=== PATIENT | female | born 1935 | race Caucasian/White ===

== ENCOUNTER 2022-05-09 07:54 | Outpatient (CLI) | payer MEDICARE, OTHER, SELFPAY ==
[2022-05-09 09:30] LABS: Albumin* 4.3 g/dL (3.3-5.0)
[2022-05-09 09:31] LABS: Chloride* 101 mmol/L (96-114); Potassium* 4.5 mmol/L (3.6-5.1); Sodium* 138 mmol/L (135-149)
[2022-05-09 09:33] LABS: Alanine Aminotransferase* 18 U/L (4-35); Alkaline Phosphatase* 98 U/L (40-150); Aspartate Amino Transferase* 26 U/L (12-35); Bilirubin Total* 0.6 mg/dL (0.1-1.5); Blood Urea Nitrogen* 18 mg/dL (7-30); Carbon Dioxide* 31 mmol/L (20-32); Cholesterol* 195 mg/dL (90-199); Creatinine* 0.7 mg/dL (0.5-1.5); Estimated Glomerular Filt Rate 84 ml/min; Glucose* 100 mg/dL (60-115); Total Protein* 6.9 g/dL (6.0-8.3)
[2022-05-09 09:34] LABS: Calcium* 8.9 mg/dL (8.4-10.6); HDL Cholesterol* 75 mg/dL (>=50); LDL Cholesterol Calculated 101 mg/dL (<100); Triglycerides* 95 mg/dL (40-149)
[2022-05-09 10:05] LABS: TSH With Reflex to FT4* 0.234 uIU/mL (0.270-4.200)
[2022-05-10 02:50] LABS: Free T4 Free Thyroxine* 1.49 ng/dL (0.70-1.85)
== END 2022-05-09 07:55 | disposition home or self-care (01) ==
LOC: NFLDREF 07:54
PROVIDERS: PCP Internal Medicine; Visit Provider Internal Medicine
DX: I10 Essential (primary) hypertension (principal); E03.9 Hypothyroidism, unspecified; Z13.6 Encounter for screening for cardiovascular disorders
CPT/HCPCS: 80053; 80061; 84439; 84443

== ENCOUNTER 2023-01-16 10:30 | Outpatient (RCR) | payer MEDICARE, OTHER, SELFPAY ==
--- NOTE | 2022-06-19 10:11 | PT.OPEX ---
PT [place] Outpatient Eval PT [facility] Outpatient Eval Start: 06/18/22 07:35 Freq: Status: Active Protocol: Document 06/18/22 07:41 JUDY (Rec: 06/18/22 07:47 JUDY [id number]) E-signed By Temitope Taylor, PT Physical Therapy Outpatient Evaluation Insurance Information Recert Due Date 09/16/22 Insurance Name Medicare B,[employer] 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 Initially did well with her recovery and then symptoms started to worsen. Her current symptoms are of daily urinary incontinence, urinary urgency, and bowel urgency. Reports bladder leakage with holding her urine too long, coughing, sneezing, and laughing. Will had issues with urge with running water and galvan in the door. Bowel issues are of severe urgency after she eats in the morning. Does have a history of multiple surgeries including: hysterectomy, R inguinal hernia repair X2, thyroidectomy due to cancer, cholecystectomy, and B TKA. Also had a TIA approx 5 yrs ago. Goals for therapy are symptom reduction and improvement in her bladder function. 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 Pt has been taking Citrucel multiple times a week in the evening. She is unsure if her bowel urgency in the am correlates to taking Citrucel at night - will see if there is a correlation. Does not drink enough fluid/water per day. Has not been managing her IAP pressure well with daily activities. Did not have time to complete her evaluation of her PFM today. Will complete at the next session as able. Plan is to continue with further skilled PT services including use of therapeutic exercise, therapeutic activities, neuromuscular re- ed, manual therapy, and self cares for symptom reduction. Plan of Care Rehabilitation Potential Good Physical Therapy Goals Short term goals to be achieved in 4 weeks 1. Able to state 4 of 4 urge suppression/bladder retraining strategies 2. Able to report voiding intervals of 1X every 2-4 hours, 6-8 times per day, 6 out of 7 days. 3. Pt will demonstrate use of functional PFM contraction by performing a precontraction to eliminate UI during coughing and sneezing 4. Will demonstrate an increase in PFM endurance to at least 8 sec holds, X 10 reps, for ability to reduce UI symptoms with ADLs and household activities. senior care goals to be achieved in 12 weeks. 1. Independent with self-care program to allow for reduction in her UI symptoms 2. Will report an 80% reduction in her UI symptoms as seen with ability to stay dry 5 out of 7 days. 3. Pt will report no leaking with coughing, sneezing, and laughing. 4. Pt will report an 80% reduction in her bowel urgency . Coordination/Communication With Referral Source Treatment Plan/Direct Interventions Joint Mobilization,Manual Therapy,Neuromuscular Re-ed, Self-Care/Home Management, Therapeutic Activities, Therapeutic Exercises Frequency/Duration 1 time a week for up to 12 weeks. Patient Will Be Discharged From Therapy Completion of LTG(s),Skills Plateau,Independent w/HEP, Independently Progressing Evaluation Billing Untimed Code Treatment Minutes 40 Complexity Moderate Certification Information Initial Certification Date 06/18/22 Ending Certification Date 09/16/22 Provider Signature Shows Agreement With POC & Medical Necessity Physician Signature & Date Requested Please Sign/Date Here Physician Comment/Change : Physician NPI Number #
--- NOTE | 2022-09-25 12:52 | PT.OPDNX ---
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 Overall she is doing OK. Bladder symptoms are fair. Pt is still aware of the bathroom locations. Her LE spasms are better after her appt on . She is having L sided LBP. Pain usually occurs with her transfers out of bed. Also will have symptoms amb stairs in the evening. Symptoms are of a pinch/pain in her L side of the LB. Can radiate into the hip a bit. Does feel like her L LE is weakner on the stairs but doesn't feel like it will give out. Varying level of compliance with her HEP. Precautions Treatment Precautions/Contraindications TIA hx/o Bladder suspension surgery hx/o hysterectomy hx/o inguinal hernia repair hx/o thyroidectomy hx/o cholecystectomy hx/o B TKA Objective Patient Instructed in Risks/Benefits Yes Therapeutic Exercise Therapeutic Exercise Minutes (minutes) 23 Therapeutic Exercise: To Restore Did assessment of her LE Functional Status strength - grossly WFL. 4/5 strength with L hip flexion and 4+/5 strength for L ankle PF. Did work on HEP to try prior to getting out of bed. KTC, PT , HS and LTRs to help to alleviate her symptoms in the morning. Self Care Management Training Self-Care Activity Minutes (minutes) 15 Self Care Management Training Discussion of her lumbar symptoms. Did discuss modifications to try to reduce pain by end of day - reducing steps during the day alvina in the evening. Will try to start walking more to build her strength and endurance. Will contact MD If needed. Reviewed symptoms to see MD Treatment Minutes Timed Code Treatment Minutes 38 Total Treatment Time 38 Billing Units Self-Care Activity Units 1 Therapeutic Exercise Units 2 Assessment/Impression Assessment/Impression Treatment was limited today due to having another appt. Pt overall is doing fair. Compliance with her HEP still varies. Her symptoms are improving but is still aware of bathroom locations. Does go more often then every 2 hours due to concern of leaking. Today pt presented with multiple concerns. Her main concern was with her LBP. Also has issues with B thumb (will talk to MD about). Her LBP usually in am and in pm- possibly related to deg changes. Did work on updating her HEP to address issues LB symptoms. Pt will get back into walking. Will try to do more of her HEP, more consistently. Has a good understand of her HEP at this time. Will see pt for 1-3 more sessions to help transition into independent self management. Plan of Care Physical Therapy Goals Short term goals to be achieved in 4 weeks 1. Able to state 4 of 4 urge suppression/bladder retraining strategies MET 2. Able to report voiding intervals of 1X every 2-4 hours, 6-8 times per day, 6 out of 7 days. IMPROVED 3. Pt will demonstrate use of functional PFM contraction by performing a precontraction to eliminate UI during coughing and sneezing IMPROVED 4. Will demonstrate an increase in PFM endurance to at least 8 sec holds, X 10 reps, for ability to reduce UI symptoms with ADLs and household activities. IMPROVED shelter goals to be achieved in 12 weeks. 1. Independent with self-care program to allow for reduction in her UI symptoms 2. Will report an 80% reduction in her UI symptoms as seen with ability to stay dry 5 out of 7 days. 3. Pt will report no leaking with coughing, sneezing, and laughing. 4. Pt will report an 80% reduction in her bowel urgency . Daily Plan of Care Continue per POC,Change POC; See Comments Daily Plan of Care Comments Continue with 1-3 more sessions. Her next scheduled PT appt isn't until November. She is on vacation for part of this time and PT schedule is full. Did place her on a waitlist. Pt's plan is to continue with her HEP and will be more compliant. Recertification Information Initial Certification Date 06/18/22 Recertification Start Date 09/25/22 Recertification Due Date 12/24/22 Reasons to Continue Skilled Therapy Pt has made progress toward her goals. Consistency of her PT appt has varied to 1-2 appts per month due to scheduling. Pt has a good program just continues to need some guidance with progression yet, alvina functional strengthen and urge control, to work on better bladder control. Pt will be more motivated to start more of a walking routine to promote PFM strength. Is appropriate for further PT for transitoin. Rehabilitation Potential good Continued Plan of Care and Interventions Will continue with 1-3 more sessions over the next 90 days to modify/progress HEP for transition into independent self management. Will use ther exs, NMRE, self care, and MT as needed for further symptom reduction. Provider Signature Shows Agreement With POC & Medical Necessity Physician Comment/Change Comment or Changes Physician NPI Number #
--- NOTE | 2023-01-16 14:51 | PT.OPDNX ---
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 Was told to wait 3 days prior to returning to exs. After that, she just got off the track. Did not return to doing them. Then she fell in her house- slipped on papers. Hit her L arm and leg on the desk - bruising on her arm and LE. Pt stated she felt weak and was not recovering quickly after her fall. Did go see ortho due to fear of LE injuries and continued pain. Did have xrays of hips and they were negative. Feeling good today. UI still occurs in the am getting out of bed and when she gets home (galvan in the door). Precautions Treatment Precautions/Contraindications TIA hx/o Bladder suspension surgery hx/o hysterectomy hx/o inguinal hernia repair hx/o thyroidectomy hx/o cholecystectomy hx/o B TKA Objective Patient Instructed in Risks/Benefits Yes Therapeutic Exercise Therapeutic Exercise Minutes (minutes) 20 Therapeutic Exercise: To Restore Pt wanted to review her HEP. Functional Status Did review wall squats - measured out distance from wall to feet, 15 inches. Pt did need cueing about not going too low and not to hold > 5-10 sec (was trying to hold it for 2 mins). Quick review of step ups and Kegels. Did discuss ways to try to improve compliance and how some days when she is busy to do small work outs/a couple exs. Self Care Management Training Self-Care Activity Minutes (minutes) 8 Self Care Management Training Review of ways to help control urges with use of tibial nerve stimulation with ankle movement (pumps, DF/PF, circles) alvina when getting out of bed and when walking to the bathroom/getting home. Treatment Minutes Timed Code Treatment Minutes 28 Total Treatment Time 28 Billing Units Self-Care Activity Units 1 Therapeutic Exercise Units 1 Assessment/Impression Assessment/Impression Did review her HEP per pt request. Did modify/ reinstruct to help pt improve her compliance and for proper execution of her exs. Still is having issues with leaking alvina in the am and galvan in the door. Did educate on other ways to try to reduce urges to help improve her bladder control. She will try to work on the exs and the urge reduction techniques. She was able to demonstrate all of her exs correctly by end of session. Does understand need for compliance in order for her symptoms to improve. Her month of Jan is really busy so does not think she can make it into PT but will do her exs . Is planning to return to PT in early February, or as her schedule allows, for progression as needed. Will contact PT with any questions or concerns prior to her next session. . Plan of Care Physical Therapy Goals Short term goals to be achieved in 4 weeks 1. Able to state 4 of 4 urge suppression/bladder retraining strategies MET 2. Able to report voiding intervals of 1X every 2-4 hours, 6-8 times per day, 6 out of 7 days. IMPROVED 3. Pt will demonstrate use of functional PFM contraction by performing a precontraction to eliminate UI during coughing and sneezing IMPROVED 4. Will demonstrate an increase in PFM endurance to at least 8 sec holds, X 10 reps, for ability to reduce UI symptoms with ADLs and household activities. 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 1. Independent with self-care program to allow for reduction in her UI symptoms 2. Will report an 80% reduction in her UI symptoms as seen with ability to stay dry 5 out of 7 days. NOT MET 3. Pt will report no leaking with coughing, sneezing, and laughing. NOT MET 4. Pt will report an 80% reduction in her bowel urgency . IMPROVED. Daily Plan of Care Continue per POC,Change POC; See Comments Daily Plan of Care Comments Pt busy until February, will schedule 1 more session as pt is able. Will call if PT is needed prior. Will Continue with use therapeutic exercise, therapeutic activities, neuromuscular re-ed, manual therapy, and self cares for further symptom reduction. Recertification Information Initial Certification Date 06/18/22 Recertification Start Date 01/16/23 Recertification Due Date 04/16/23 Reasons to Continue Skilled Therapy Pt has not been seen over the past 6+ weeks. She did fall and injured her L UE and LE. Has not returned to her HEP as she should. Has struggled with UI symptoms both stress and urge type. Will work on her HEP. Rehabilitation Potential good Continued Plan of Care and Interventions Will continue with 1 session over the next 90 days to modify/progress HEP for transition into independent self management. Will use ther exs, NMRE, self care, and MT as needed for further symptom reduction. Provider Signature Shows Agreement With POC & Medical Necessity Physician Comment/Change Comment or Changes Physician NPI Number #
== END 2023-05-16 23:59 | disposition home or self-care (01) ==
PROVIDERS: PCP Internal Medicine; Visit Provider Internal Medicine
DX: N81.89 Other female genital prolapse (principal); R27.8 Other lack of coordination; N81.84 Pelvic muscle wasting; Z51.89 Encounter for other specified aftercare
CPT/HCPCS: 97110; 97140; 97162; 97535

== ENCOUNTER 2023-04-16 10:14 | Outpatient (CLI) | payer MEDICARE, OTHER, SELFPAY | END 2023-04-16 10:15 | disposition home or self-care (01) | LOC: NFLDREF 10:15 | PROVIDERS: PCP Internal Medicine; Visit Provider Internal Medicine | DX: E03.9 Hypothyroidism, unspecified (principal); I10 Essential (primary) hypertension; E66.9 Obesity, unspecified | CPT/HCPCS: 84439; 84443 ==

== ENCOUNTER 2023-06-15 20:15 | Emergency (ER) | payer MEDICARE, OTHER, SELFPAY ==
[2023-06-15] VITALS (20 sets, daily range): BP systolic 155–195; BP diastolic 65–91; PULSE 59–86; RESP 16; TEMP 36.4; O2SAT 93–98; BMI 28.3
--- NOTE | 2023-06-15 21:21 | CT_ITS ---
Final Report Patient: ITALO DODD Facility:?[facility] Patient ID:?[id number] Site Patient ID:?[id number]. Site :?[id number] Study:?CT Head W/O-06/15/2023 9:55:30 PM Ordering Physician:RORY Final Report: INDICATION: Headache TECHNIQUE: CT Head without i.v. contrast. Coronal and sagittal reformats were obtained. COMPARISON: 04/27/2016, MRI 04/29/2016 FINDINGS: CSF space: Unremarkable for age. Brain: There is a new extra-axial, hemispherical hyperdense lesion abutting the right anterior clinoid process measuring 10 mm. No mass-effect or midline shift is seen. Mild diffuse cortical atrophy is noted. Calvarium: The visualized paranasal sinuses are well aerated. The mastoid air cells are clear. Macro cataract The calvarium is unremarkable in appearance with no fractures identified. IMPRESSION: 1. There is a new extra-axial, hemispherical hyperdense lesion abutting the right anterior clinoid process measuring 10 mm. Further evaluation with MRI and MRA is recommended to exclude a meningioma or intracranial aneurysm. Dictated by Kameron Dias MD @ 06/15/2023 10:32:26 PM Please note that all CT scans at this facility use dose modulation, iterative reconstruction, and/or weight-based dosing when appropriate to reduce radiation dose to as low as reasonably achievable. Dictated by: Kameron Dias MD @ 06/15/2023 22:32:41 (Electronic Signature)
--- OUTSIDE RECORDS SUMMARY | 2023-06-15 21:56 | XMS_ITS | Clinical Summary ---
Author Name Unknown Organization [facility] Address [address] [place] [address] Care Team Providers Care Operations Forester Name Role Phone Clinic, [facility] Unavailable Unavailable Md, Not Listed Primary Care Provider Unavailabl e Allergies No known active allergies Medications Medication Sig Dispensed Refills Start Date End Date Status estrogens, conjugated (PREMARIN) 0.3 mg oral tablet Take 0.15 mg by mouth once daily. Active metoprolol succinate, XL, (TOPROL XL) 25 mg oral extended release tablet 24 HR Take 25 mg by mouth once daily. Active levETIRAcetam (KEPPRA) 500 mg oral tablet Take 250 mg by mouth Twice a Day. Active multi-vitamin, contains A, C and E, (OCUVITE; PROSIGHT) oral Tab Take 1 tablet by mouth once daily. Active cholecalciferol, Vitamin D3, 1,000 unit oral tablet Take 1,000 Units by mouth once daily. Active multivitamin (CERTAVITE) 18-400 mg-mcg oral tablet Take 1 tablet by mouth once daily. Active triamterene-hydrochlo rothiazide (DYAZIDE) 37.5-25 mg oral capsule Take by mouth once daily. Active levothyroxine (SYNTHROID) 125 mcg oral tablet Take 125 mcg by mouth once daily. Active aspirin 81 mg oral enteric coated tablet Take 81 mg by mouth once daily. Active famotidine (PEPCID) 10 mg oral tablet Take by mouth once a day as needed. 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 Cystocele, midline 04/14/2017 Social History Tobacco Use Types Packs/Day Years Used Date Smoking Tobacco: Former Smokeless Tobacco: Never Sex and Gender Information Value Date Recorded Sex Assigned at Not on file Gender Identity Not on file Sexual Orientation Not on file Last Filed Vital Signs Vital Sign Reading Time Taken Comments Blood Pressure 137/58 04/15/2017 11:00 AM SCOUT EXECUTIVE Pulse 65 04/15/2017 11:00 AM SCOUT EXECUTIVE Temperature 36.5 ??C (97.7 ??F) 04/15/2017 1 0:15 AM SCOUT EXECUTIVE Respiratory Rate 14 04/15/2017 11:0 0 AM SCOUT EXECUTIVE Oxygen Saturation 97% 04/15/2017 11: 00 AM SCOUT EXECUTIVE Inhaled Oxygen Concentration - - Weight 77.9 kg (171 lb 12.8 oz) 04/15/2017 6:19 AM SCOUT EXECUTIVE Height 162.6 cm (5' 4) 04/15/2017 6:19 AM SCOUT EXECUTIVE Body Mass Index 29.49 04/15/2017 6:19 AM SCOUT EXECUTIVE Plan of Treatment Health Maintenance Due Date Last Done Comments Dexa Scan 1935 Lipid Screening 1935 Adult Tetanus Booster 1954 Zoster Vaccine (1 of 2) 1985 RSV (1 - 1-dose 60+ series) 1995 Pneumococcal 65+ (1 of 1 - PCV) 2000 Yearly Review of HCD 02/12/2018 02/12/2017 COVID-19 Vaccine ( - 2022- season) 2022 Influenza Vaccine (#1) 2022 Medical Devices Implanted Type Area Station Worker Device Identifier Shelf Expiration Date Model / Serial / Lot Mesh Y Restorelle 24x4cm - [id number] Implanted:Qty: 1 on 04[facility]15/2017 [facility] Pelvis Coloplast Dona 11/07/2019 [id number] / / [id number] Directives For more information, please contact: [phone] Documents on File Type Date Recorded Patient Clinical Trials Systems Administrator Expl anation HCD - Complete 04/24/2017 8:42 AM Care Teams Operations Forester Relationship [facility] 04[facility]14[facility]17 , Not Listed no address PCP - General Internal Medicine 04/14/17
--- OUTSIDE RECORDS SUMMARY | 2023-06-15 21:56 | XMS_ITS | Referral Summary ---
Author Name Unknown Organization [facility] Address [address] [place] [address] Care Team Providers Care Passport Support Manager Name Role Phone Clinic, [facility] Unavailable Unavailable Md, Not Listed Primary [...] Comments Blood Pressure 137/58 04/15/2017 11:00 AM GOLD CHARMER Pulse 65 04/15/2017 11:00 AM GOLD CHARMER Temperature 36.5 ??C (97.7 ??F) 04/15/2017 1 0:15 AM GOLD CHARMER Respiratory Rate 14 04/15/2017 11:0 0 AM GOLD CHARMER Oxygen Saturation 97% 04/15/2017 11: 00 AM GOLD CHARMER Inhaled Oxygen Concentration - - Weight 77.9 kg (171 lb 12.8 oz) 04/15/2017 6:19 AM GOLD CHARMER Height 162.6 cm (5' 4) 04/15/2017 6:19 AM GOLD CHARMER Body Mass Index 29.49 04/15/2017 6:19 AM GOLD CHARMER Plan of Treatment Not on file Medical Devices Implanted Type Area Special Agent In Charge Device Identifier Shelf Expiration Date Model / Serial / Lot Mesh Y Restorelle 24x4cm - [id number] Implanted:Qty: 1 on 04/15/2017 by Wilber Alvarado MD at [facility] Sling N/A: Pelvis Coloplast Dona 11/07/2019 [id number] / / [id number] Directives For more information, please contact: [phone] Documents on File Type Date Recorded Patient Hand Developer Expl anation HCD - Complete 04/24/2017 8:42 AM Care Teams Passport Support Manager Relationship Specialty Start Date End Date Clinic, [facility] PCP - Primary Care Clinic 04/14/17 , Not Listed no address PCP - General Internal Medicine 04/14/17
--- OUTSIDE RECORDS SUMMARY | 2023-06-15 21:56 | XMS_ITS | Clinical Summary ---
Author Name Unknown Organization [facility] Address [place], [place] [address] Care Team Providers Care Slate Roofer Helper Name Role Phone Clinic, No Pcp Or Primary Care Provider Unavaila ble Allergies No known active allergies Medications Medication Sig Dispensed Refills Start Date End Date Status PREMARIN LOW DOSE 0.45 mg tablet 0 07/05/2016 Active levothyroxine (SYNTHROID) 125 mcg tablet 0 07/04/2016 Active levETIRAcetam (KEPPRA) 500 mg tablet 0 05/15/2016 Active metoprolol succinate (TOPROL XL) 25 mg Sustained-Release tablet 0 06/20/2016 Active Social History Tobacco Use Types Packs/Day Years Used Date Smoking Tobacco: Never Assessed Sex and Gender Information Value Date Recorded Sex Assigned at Not on file Gender Identity Not on file Sexual Orientation Not on file Last Filed Vital Signs Vital Sign Reading Time Taken Comments Blood Pressure 136/77 08/13/2016 1:36 PM CDT Pulse 64 08/13/2016 1:36 PM CDT Temperature 36.6 ??C (97.8 ??F) 08/13/2016 1:36 PM CD T Respiratory Rate - - Oxygen Saturation 97% 08/13/2016 1:36 PM CDT Inhaled Oxygen Concentration - - Weight 79.9 kg (176 lb 3.2 oz) 08/13/2016 1:36 P M CDT Height - - Body Mass Index - - Plan of Treatment Health Maintenance Due Date Last Done Comments COVID-19 vaccine series (#1) 1935 Tdap 1946 Depression screening for age 12+ 1947 BMI (ht and wt on same day) for age 18+ 1953 Tetanus booster 1955 Zoster (shingles) series for age 50+ (1 of 2) 06/12/18 86 DEXA/DXA scan for age 65+ 2000 Pneumococcal series for age 65+ (1 of 1 - PCV) 001 Influenza for age 65+ 12/27/2022 Care Teams Slate Roofer Helper Relationship Specialty Start Date End Date Clinic, No Pcp Or . PCP - General 08/13/16
[2023-06-15 21:58] LABS: Basophils Absolute Auto 0.01 K/uL (0.00-0.30); Basophils Percent Auto 0.2 % (0.0-3.0); Hematocrit 38.8 % (33.0-51.0); Hemoglobin* 12.9 gm/dL (12.0-16.0); Immature Granulocytes Abs Auto 0.04 K/uL (0.00-0.30); Immature Granulocytes Pct Auto 0.8 %; Lymphocytes Absolute Auto 1.34 K/uL (0.90-2.90); Lymphocytes Percent Auto 26.8 % (20-44); Mean Corpuscular HGB Conc 33 gm/dL (32-36); Mean Corpuscular Hemoglobin 30 pg (26-34); Mean Corpuscular Volume 90 fL (80-100); Monocytes Percent Auto 7.6 % (0.0-11.0); Neutrophils Absolute Auto 3.13 K/uL (1.7-7.0); Neutrophils Percent Auto 62.6 % (42.0-72.0); RDW Coefficient of Variation % 12.5 % (11.5-15.5); Red Blood Count 4.33 m/uL (4.00-5.20)
[2023-06-15] MEDS: 0.9 % SODIUM CHLORIDE 1000 ml 1,000 ML IV (22:10)
[2023-06-15 22:19] LABS: INR 0.88 (0.91-1.10); Platelet Count* 360 K/uL (140-440); Prothrombin Time 12.4 Seconds; Slide Review Reflex No
[2023-06-15 22:20] LABS: Partial Thromboplastin Time* 26 Seconds (23-33)
[2023-06-15 22:37] LABS: PCR FLU A Negative PCR FLU A (Negative); PCR FLU B Negative PCR FLU B (Negative); PCR RSV Negative PCR RSV (Negative); SARS PCR* Negative SARS-CoV-2 (Negative)
[2023-06-15 22:55] LABS: Anion Gap 6 mEq/L (7-15); Blood Urea Nitrogen* 17 mg/dL (7-30); Calcium* 8.6 mg/dL (8.4-10.6); Carbon Dioxide* 27 mmol/L (20-32); Chloride* 94 mmol/L (96-114); Creatinine* 0.6 mg/dL (0.5-1.5); Est. Creatinine Clearance* 33.58; Estimated Glomerular Filt Rate 86 ml/min; Glucose* 115 mg/dL (60-115); Potassium* 4.2 mmol/L (3.6-5.1); Sodium* 127 mmol/L (135-149)
--- NOTE | 2023-06-15 23:15 | ED_ITS ---
HPI - Dizziness General Date Seen: 06/15/23 Chief Complaint: Dizziness/Vertigo Stated Complaint: Dizzy attack Time Seen by Provider: 06/15/23 20:45 Source: patient and family Mode of arrival: ambulatory Limitations: no limitations History of Present Illness HPI Narrative: Patient is 88-year-old female, brought in by her son, with a history of dizziness, the dizziness started approximately 6:00 p.m. emeli, after she got home from a concert for 3 hours she thought she might have some soup, and the dizziness came on she described as the room spinning around. She was sitting when this occurred, continue to sit for approximately 30 minutes called her son, who talked her through getting some water, she laid down, the spinning improved after approximately 1 hour she did not notice any nausea and, did not vomit. She denies any numbness tingling weakness or any loss of dexterity, inability to talk her son tells me she was not slurring her words. She does have a history of either a TIA or seizure, both times she had trouble getting her words out. She was seen here I believe in 2019, and had a workup with MRI MRA, she is placed on Keppra and has maintained that since. The dizziness definitely was worse when she moves her head upper set up, better when she laid flat, she says is basically totally gone away now. She has no history of hearing loss, or ringing in her ears, but her sister had Meniere's disease. MD elicited complaint: vertigo Pertinent past history: stroke Timing: sudden onset Severity: moderate Description: sense of movement and room spinning History of similar symptoms: No Exacerbating factors: nothing Associated symptoms: denies other symptoms Related Data Home Medications Medication Instructions Recorded Confirmed cholecalciferol (vitamin D3) 25 25 mcg PO QDAY 10/30/21 04/16/23 mcg (1,000 unit) capsule multivitamin 1 tab PO QDAY 10/30/21 04/16/23 vit C 250 mg-E 90 mg-zinc 40 1 tab PO QAM AND QPM 10/30/21 04/16/23 mg-copper 1 [id number] chew tablet (PreserVision AREDS-2) Previous Rx's Medication Instructions Recorded lisinopril 20 mg tablet 20 mg PO QDAY Hypertension #90 tabs 02/01/23 metoprolol succinate 25 mg 25 mg PO DAILY #90 tabs 10/07/22 tablet,extended release 24 hr levetiracetam 250 mg tablet 250 mg PO BID #180 tabs 01/21/23 levothyroxine 112 mcg capsule 112 mcg PO QDAY #90 caps 04/18/23 hydrochlorothiazide 12.5 mg tablet 12.5 mg PO QAM Hypertension #90 04/24/23 tabs Allergies Allergy/AdvReac Type Severity Reaction Status Date / Time No Known Allergies Allergy Verified 06/16/23 00:57 Review of Systems Status of ROS: Reports: 10 or more systems reviewed and unremarkable except as noted in History and [facility] History Pelvic floor weakness ?N81.89 - Other female genital prolapse (ICD-10) Urinary tract infection ?N39.0 - Urinary tract infection, site not specified (ICD-10) Postoperative hemorrhage Encounter for postoperative wound check ?Z48.89 - Encounter for other specified surgical aftercare (ICD-10) History of seizure ?Z87.898 - Personal history of other specified conditions (ICD-10) Surgical History Status post bilateral knee replacements ?Z96.653 - Presence of artificial knee joint, bilateral (ICD-10) Status post inguinal hernia repair ?Z98.890 - Other specified postprocedural states (ICD-10) ?Z87.19 - Personal history of other diseases of the digestive system (ICD-10) Status post cholecystectomy ?Z90.49 - Acquired absence of other specified parts of digestive tract (ICD- 10) History of thyroidectomy ?E89.0 - Postprocedural hypothyroidism (ICD-10) History of hysterectomy ?Z90.710 - Acquired absence of both cervix and uterus (ICD-10) History of bilateral cataract extraction ?Z98.41 - Cataract extraction status, right eye (ICD-10) ?Z98.42 - Cataract extraction status, left eye (ICD-10) History of foot surgery ?Z98.890 - Other specified postprocedural states (ICD-10) History of bladder suspension procedure ?Z98.890 - Other specified postprocedural states (ICD-10) ?Z87.448 - Personal history of other diseases of urinary system (ICD-10) History of SCC (squamous cell carcinoma) of skin ?Z85.828 - Personal history of other malignant neoplasm of skin (ICD-10) Social History Smoking Status: Former smoker What tobacco products do you use: cigarettes Smoking quit date/years: >15 years ago Do you use any of these nicotine containing products: None Second hand tobacco smoke exposure: No Little interest or pleasure in doing things: not at all Feeling down, depressed, or hopeless: not at all Exam Narrative: Exam Narrative: I see her in room a, she has excellent historian, no apparent distress speaking to me normally. Her pupils equal round reactive to light there is no nystagmus now, extraocular muscles are normal fingers nose testing is normal cranial nerves 3-12 are normal she is able to whistle for me her TMs are normal, her neck is supple, her carotid upstrokes are equal bilaterally with no bruits, ceci st is good air entry bilateral with no wheezing crackles noted her heart sounds are normal no clicks murmurs or gallops her abdomen is soft, there is no guarding no organomegaly she moves all extremities independently well with no edema swelling. Stroke score is 0. Const: Vital Signs, click to edit/add: Vital Signs - 24 hr 06/15/23 20:50 06/15/23 21:21 06/15/23 21:55 Temperature 97.6 F Pulse Rate 59 L Pulse Rate [Left P ulse Oximeter] 73 Respiratory Rate 16 Blood Pressure Blood Pressure [Le ft Upper Arm] 195/91 H Pulse Oximetry 98 97 97 Oxygen Delivery Me thod Room Air 06/15/23 22:00 06/15/23 22:04 06/15/23 22:10 Temperature Pulse Rate 63 62 63 Pulse Rate [Left P ulse Oximeter] Respiratory Rate Blood Pressure 155/78 H Blood Pressure [Le ft Upper Arm] Pulse Oximetry 95 97 97 Oxygen Delivery Me thod 06/15/23 22:20 06/15/23 22:30 06/15/23 22:35 Temperature Pulse Rate 63 65 62 Pulse Rate [Left P ulse Oximeter] Respiratory Rate Blood Pressure Blood Pressure [Le ft Upper Arm] Pulse Oximetry 93 96 96 Oxygen Delivery Me thod 06/15/23 22:40 06/15/23 22:58 06/15/23 23:00 Temperature Pulse Rate 64 86 67 Pulse Rate [Left P ulse Oximeter] Respiratory Rate Blood Pressure Blood Pressure [Le ft Upper Arm] Pulse Oximetry 98 95 96 Oxygen Delivery Me thod 06/15/23 23:03 Temperature Pulse Rate 67 Pulse Rate [Left P ulse Oximeter] Respiratory Rate Blood Pressure 169/68 H Blood Pressure [Le ft Upper Arm] Pulse Oximetry 95 Oxygen Delivery Me thod Course Course ED Course: Patient had no further dizziness was able ambulate without problems, we did a CTA of the head neck, to further delineate the mass, turns out it does not enhance, so is not an aneurysm radiologist thinks that most likely is a meningioma. She also has a small lesion in her lung, that will need a chest CT. I explained this to her, and her diagnosis at this point we can discharge her she will need some outpatient testing which I have told her, she will need follow-up with her primary care physician. Vital Signs Vital signs: Initial Vital Signs Temperature 97.6 F 06/15/23 20:50 Temperature Source Temporal Artery Scan 06/15/23 20:50 Pulse Rate 73 06/15/23 20:50 Respiratory Rate 16 06/15/23 20:50 Blood Pressure 195/91 H 06/15/23 20:50 Blood Pressure Mean 125 H 06/15/23 20:50 Blood Pressure Position Semi-Fowlers 06/15/23 20:50 Pulse Oximetry 98 06/15/23 20:50 Oxygen Delivery Method Room Air 06/15/23 20:50 Vital Signs Temperature 97.6 F 06/15/23 20:50 Pulse Rate 73 06/15/23 20:50 Respiratory Rate 16 06/15/23 20:50 Blood Pressure 195/91 H 06/15/23 20:50 Pulse Oximetry 98 06/15/23 20:50 Oxygen Delivery Method Room Air 06/15/23 20:50 Temperature 97.6 F 06/15/23 20:50 Pulse Rate 67 06/15/23 23:03 Respiratory Rate 16 06/15/23 20:50 Blood Pressure 169/68 H 06/15/23 23:03 Pulse Oximetry 95 06/15/23 23:03 Oxygen Delivery Method Room Air 06/15/23 20:50 Medications Administered Medications: Discontinued Medications Generic Name Dose Route Start Last Admin Trade Name Freq PRN Reason Stop Dose Admin Sodium Chloride 1,000 mls @ 1,000 mls/hr 06/15/23 21:30 06/15/23 22:10 0.9 % Sodium Chloride 1000 Ml IV 06/15/23 22:29 1,000 mls/hr .Q1H GALILEA Administration MDM - Dizziness MDM Narrative Medical decision making narrative: Life-threatening differential diagnosis considered include, CVA, other differential diagnosis include BPPV, labyrinthitis, Meniere's disease, vestibular neuronitis, migraine, multiple sclerosis, otitis media, viral syndrome as well as other etiologies Medical Records Attestation: I reviewed the patient's medical records. Lab Data Attestation: I reviewed the patient's lab results. Labs: Lab Results 06/15/23 06/15/23 Range/Units 21:21 21:38 WBC 5.00 (4.50-11.00) K/uL RBC 4.33 (4.00-5.20) m/uL Hgb 12.9 (12.0-16.0) gm/dL Hct 38.8 (33.0-51.0) % MCV 90 (80-100) fL MCH 30 (26-34) pg MCHC 33 (32-36) gm/dL RDW Coeff of Trini 12.5 (11.5-15.5) % Plt Count 360 (140-440) K/uL Neut % (Auto) 62.6 (42.0-72.0) % Lymph % (Auto) 26.8 (20-44) % [place] % (Auto) 7.6 (0.0-11.0) % Eos % (Auto) 2.0 (0.0-7.0) % Baso % (Auto) 0.2 (0.0-3.0) % Neut # (Auto) 3.13 (1.7-7.0) K/uL Lymph # (Auto) 1.34 (0.90-2.90) K/uL [place] # (Auto) 0.40 (0.00-0.90) K/UL Eos # (Auto) 0.10 (0.00-0.50) K/uL Baso # (Auto) 0.01 (0.00-0.30) K/uL Abs Immat Gran (auto) 0.04 (0.00-0.30) K/uL Imm/Tot Granulo (auto) 0.8 % INR 0.88 L (0.91-1.10) APTT 26 (23-33) Seconds Sodium 127 L (135-149) mmol/L Potassium 4.2 (3.6-5.1) mmol/L Chloride 94 L (96-114) mmol/L Carbon Dioxide 27 (20-32) mmol/L Anion Gap 6 L (7-15) mEq/L BUN 17 (7-30) mg/dL Creatinine 0.6 (0.5-1.5) mg/dL Estimated Creat Clear 33.58 Estimated GFR 86 ml/min Glucose 115 (60-115) mg/dL Calcium 8.6 (8.4-10.6) mg/dL SARS-CoV-2 (PCR) Negative SARS-CoV-2 (Negative) Influenza Type A (PCR) Negative PCR FLU A (Negative) Influenza Type B (PCR) Negative PCR FLU B (Negative) RSV (PCR) Negative PCR RSV (Negative) POC Troponin I 0.00 L (0.01-0.04) ng/ml Imaging Data CT scan - head: Attestation: I have reviewed the pertinent imaging results. Radiologist's impression: Patient: ITALO DODD Facility:?[facility] Patient ID:?[id number] Site Patient ID:?[id number]. Site :?[id number] Study:?CT Neck Angio W/ 95CC ISOVUE 370-06/16/2023 12:56:42 AM Ordering Physician:RORY Preliminary Report: PRELIMINARY IMPRESSIONS: 1. 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 2. The neck vessels shows no evidence of dissection, significant stenosis in the common or internal carotid arteries, vertebral arteries, or visualized great vessels of the chest. 3. The 10 mm extra-axial lesion near the right anterior clinoid process does not enhance to suggest an aneurysm and from the right ICA by 2 mm. This may be a dural lesion such as a meningioma and can be assessed with outpatient contrast enhanced MRI. 4. There is a triangular shaped nodule in the right upper lobe measuring 11 x 6 mm. Read by:?Kameron Dias MD @ 06/16/2023 01:03:03 Patient: ITALO DODD Facility:?[facility] Patient ID:?[id number] Site Patient ID:?[id number]. Site :?[id number] Study:?CT Head W/O-06/15/2023 9:55:30 PM Ordering Physician:RORY Final Report: INDICATION: Headache TECHNIQUE: CT Head without i.v. contrast. Coronal and sagittal reformats were obtained. COMPARISON: 04/27/2016, MRI 04/29/2016 FINDINGS: CSF space: Unremarkable for age. Brain: There is a new extra-axial, hemispherical hyperdense lesion abutting the right anterior clinoid process measuring 10 mm. No mass-effect or midline shift is seen. Mild diffuse cortical atrophy is noted. Calvarium: The visualized paranasal sinuses are well aerated. The mastoid air cells are clear. Macro cataract The calvarium is unremarkable in appearance with no fractures identified. IMPRESSION: 1. There is a new extra-axial, hemispherical hyperdense lesion abutting the right anterior clinoid process measuring 10 mm. Further evaluation with MRI and MRA is recommended to exclude a meningioma or intracranial aneurysm. Dictated by Kameron Dias MD @ 06/15/2023 10:32:26 PM Please note that all CT scans at this facility use dose modulation, iterative reconstruction, and/or weight-based dosing when appropriate to reduce radiation dose to as low as reasonably achievable. Dictated by: Kameron Dias MD @ 06/15/2023 22:32:41 (Electronic Signature) Discharge Plan Discharge Clinical Impression: Meningioma, Pulmonary nodule, Vertigo Patient Disposition: Home w/ Parent or Adult Condition: Stable Instructions: Vertigo (DC), Meningioma (ED), Dizziness (ED), Pulmonary Nodules (ED) Additional Instructions: Home rest reassurance given, follow-up with primary care physician for outpatient MRI brain( with contrast) for the meningioma appearing. There also is a small pulmonary nodule, and you will need a chest CT for further evaluation. Both of these lesions are very small and I expect them to be both benign, but she need to follow-up for further testing. This should be done with her reasonable amount of time, such as 1-3 week. If the vertigo returns, then I would consideration of may be physical therapy, which can teaches some techniques for this. Medications do not work so well Activity Level: Light activity Discharge Diet: Regular Prescriptions: No Action PreserVision AREDS-2 250-90-40-1 mg tablet,chewable 1 tab PO QAM AND QPM cholecalciferol (vitamin D3) 25 mcg (1,000 unit) capsule 25 mcg PO QDAY multivitamin Tablet 1 tab PO QDAY lisinopril 20 mg tablet 20 mg PO QDAY Qty: 90 3RF metoprolol succinate 25 mg tablet extended release 24 hr 25 mg PO DAILY Qty: 90 3RF Rx Instructions: follow up appt needed before future refills levetiracetam 250 mg tablet 250 mg PO BID Qty: 180 1RF levothyroxine 112 mcg capsule 112 mcg PO QDAY Qty: 90 3RF hydrochlorothiazide 12.5 mg tablet 12.5 mg PO QAM Qty: 90 3RF Follow Up/Referrals: Chun Curtis MD [Primary Care Provider] - Stand Alone Forms: [employer] Info Instructions
--- NOTE | 2023-06-15 23:28 | CT_ITS ---
Patient: ITALO DODD Facility:?[facility] Patient ID:?[id number] Site Patient ID:?[id number]. Site :?[id number] Study:?CT-Head Angio W/ 95CC ISOVUE 370-06/16/2023 12:55:04 AM Ordering Physician:RORY Final Report: DATE: 06/16/2023. CLINICAL HISTORY: Possible aneurysm on the comparison head CT examination. TECHNIQUE: Standard helical CT image acquisition through the head following the administration of intravenous contrast was performed. Multiplanar reconstructed images performed on a separate workstation. COMPARISON: Head CT dated 06/15/2023. FINDINGS: The petrous, cavernous, and supraclinoid segments of the internal carotid arteries are within normal limits. The anterior and middle cerebral arteries are within normal limits. The anterior communicating artery is visualized and is within normal limits. The intracranial vertebral arteries, basilar trunk, and posterior cerebral arteries are within normal limits. Incidental note is made of a persistent left-sided trigeminal artery. No intracranial proximal large vessel occlusion. Intracranial atherosclerotic disease with moderate to severe stenosis of mid to distal M1 segment of the left MCA, [id number] stenosis of the supraclinoid left ICA and mild stenosis of the distal intracranial right vertebral artery. No evidence of cerebral aneurysm. No findings to suggest an arterial-venous shunting lesion. 11mm slightly hyperattenuating lesion near the right anterior clinoid process. This is nonspecific but may reflect a meningioma. IMPRESSION: 1. No evidence of cerebral aneurysm as clinically questioned. 2. Presumed 11mm meningioma in proximity to the right anterior clinoid process. This could be further assessed with MRI of the brain with and without contrast. 3. Scattered intracranial atherosclerotic disease, most notably with moderate to severe stenosis of the mid to distal M1 segment of the left MCA. Please note that all CT scans at this facility use dose modulation, iterative reconstruction, and/or weight-based dosing when appropriate to reduce radiation dose to as low as reasonably achievable. Dictated by Zack Alvarez MD @ 06/16/2023 5:30:22 PM Signed by:?Zack Alvarez MD @06/16/2023 5:30:22 PM (Electronic Signature)
[2023-06-16] VITALS (10 sets, daily range): BP systolic 170–191; BP diastolic 77–84; PULSE 57–73; O2SAT 90–98
--- NOTE | 2023-06-16 | CT_ITS ---
Patient: ITALO DODD Facility:?[facility] Patient ID:?[id number] Site Patient ID:?[id number]. Site :?[id number] Study:?CT-Neck Angio W/ 95CC ISOVUE 370-06/16/2023 12:56:42 AM Ordering Physician:RORY Final Report: DATE: 06/16/2023. CLINICAL HISTORY: Questionable cerebral aneurysm. TECHNIQUE: Standard helical CT image acquisition through the neck was performed after intravenous contrast bolus enhancement. Multiplanar reconstructed images were performed and interpreted. COMPARISON: None available. FINDINGS: The origins of the great vessels from the aortic arch are patent. The origins of the right and left vertebral arteries are patent. The common carotid arteries are patent. No significant luminal stenoses of the proximal internal carotid arteries by NASCET criteria. The more distal cervical segments of the internal carotid arteries are patent. The cervical segments of the vertebral arteries are patent. IMPRESSION: Patent cervical arterial vasculature without hemodynamically significant luminal stenosis. Please note that all CT scans at this facility use dose modulation, iterative reconstruction, and/or weight-based dosing when appropriate to reduce radiation dose to as low as reasonably achievable. Dictated by Zack Alvarez MD @ 06/16/2023 6:12:03 PM Signed by:?Zack Alvarez MD @06/16/2023 6:12:03 PM (Electronic Signatu
== END 2023-06-16 01:42 | disposition home or self-care (01) ==
PROVIDERS: Emergency Provider Family Medicine; PCP Internal Medicine
DX: R42 Dizziness and giddiness (principal); D32.9 Benign neoplasm of meninges, unspecified; R91.1 Solitary pulmonary nodule
CPT/HCPCS: 36415; 70450; 70496; 70498; 80048; 84484; 85025; 85610; 85730; 87631; 93005; 94761; 99284; 99285; J7030; Q9967

== ENCOUNTER 2023-07-17 11:00 | Outpatient (RCR) | payer MEDICARE, OTHER, SELFPAY ==
--- NOTE | 2023-06-18 17:53 | PT.OPEX ---
Please review and sign the attached physical therapy evaluation completed on 06/18/23. Thank you. PT [place] Outpatient Eval PT [facility] Outpatient Eval Start: 06/18/23 12:13 Freq: Status: Active Protocol: Document 06/18/23 12:13 TLQ (Rec: 06/18/23 17:49 TLQ [id number]) E-signed By Dede Bower DPT Physical Therapy Outpatient Evaluation Insurance Information Recert Due Date 09/16/23 Insurance Name Medicare B,[facility] Medical Diagnosis Dizziness and giddiness R42 Treating Diagnosis Impaired balance R26.81 Other peripheral vertigo, left ear H81.392 Referring MD Chun Curtis MD Subjective Subjective Patient states she had a bout of vertigo on the night of June 15, 2023 - went to the ED. No previous history of vertigo. States she had a busy day so didn't eat much throughout the day. Onset of dizziness was sudden, the whole room started to spin, doesn't think it lasted very long. Ponce dizzy to the point where she didn't feel comfortable getting up from the kitchen table, called her son who brought her to the ED. Was discharged home from the ED, states she slept well that night when she got home, however she felt dizzy again the following morning. On Friday morning she felt nauseous and vomited a few times, slept a lot throughout the day. Dizziness is not as intense as the initial bout but continues to feel dizzy throughout the day, really only feels better if she lies down. Saw her PCP earlier this morning who referred her to PT, he also prescribed her with Meclizine. Has picked her prescription up from the pharmacy, states this has greatly improved her nausea, now able to walk without the aid of her son. Recalls difficulty with motion sickness when she was an adolescent but has not been an issue for many years. Since her bout of vertigo she has felt more off balance and leaning toward the left, presented today with a cane for walking, does not typically use a can for mobility at home. States she is nervous about falling. Neck and head CTA completed on 06/15 and 06/16 at [facility] without significant acute findings. PMHx: osteoarthritis, HTN, hx of seizure and TIA Date of Last Physician Visit 06/18/23 Current Work Status Retired Preferred Name Anabel Precautions Therapy Limitations/Systems Review Not Limited Objective Other/Pertinent Objective CERVICAL ROM WFL for flexion and rotation B , mild stiffness with extension and lateral flexion, no dizziness OCULOMOTOR SCREEN H-test (-) Saccades (-) Convergence: normal Cover-uncover test (-) OTHER ASSESSMENTS Coordination testing (finger to nose): normal VOR: normal VOR cancellation: impaired, mild dizziness Kyle Hallpike: NT due to time limitations Horizontal roll test: NT due to time limitations BALANCE/CTSIB Romberg eyes open firm surface : 30 seconds Romberg eyes closed firm surface: 18 seconds, mild postural sway, drifts L Romberg eyes open foam surface : 30 seconds, mild postural sway Romberg eyes closed form surface: 30 seconds, moderate postural sway, mild dizziness GAIT slow geronimo, use of cane in R hand gait speed: 0.66 m/s (<1.0 m/s indicates increased risk of falls) 4-ITEM DGI 10/07 (<10 indicated increased risk of falls) Horizontal head turns (1) L lateral path deviation Vertical head turns (0) changes in gait speed Gait on level surfaces (3) Changes in gait speed (2) Functional Test Performed & Score DHI score:46/100, moderate involvement (MCID 18 points - vestibular) Assessment Assessment/Impression Anabel presents to outpatient physical therapy today to address new onset of vertigo symptoms on 06/15/23. Patient experienced sudden bout of dizziness with room spinning sensations, presented to the ED with her son where head and neck CTA's were completed and ruled out acute pathology. Since onset of symptoms patient reports feeling dizzy throughout the day, improves if she lies down. Typically ambulates without an assistive device but presents today with a cane for gait due to feeling off balance, reports fear of falling. Saw her PCP earlier today who prescribed her Meclizine to help with vertigo symptoms, patient reports improvement in nausea after taking this prescription . Complete oculomotor screen without significant findings, mild stiffness observed with active cervical mobility but does not provoke dizziness. Gait and balance assessments completed today indicate patient is at an increased risk of falls, demonstrated left lateral path deviation with vestibular challenges during the 4-item DGI. Patient symptoms likely due to unilateral vestibular hypofunction based on spontaneous onset of symptoms, impaired VOR, and unidirectional path deviation with gait assessment. Today's objective examination was limited due to time spent obtaining thorough patient history, due to time limitations was unable to perform positional testing. Plan to perform positional assessments for BPPV as appropriate, positional component of vertigo unlikely at this time as patient does not have symptoms provoked with changes in head position or rolling when in supine. Patient was educated on peripheral etiologies of vertigo symptoms, explained benefits of physical therapy treatment - patient verbally agreed to POC. Appropriate for skilled interventions to address VOR, gait, and balance difficulties due to acute vertigo episode. Primary Functional Limitations gait, balance, dizziness Plan of Care Rehabilitation Potential Good Physical Therapy Goals Therapy goals to be completed in 8 weeks: - Patient will report >75% improvement in vertigo symptoms for improved confidence during home mobility. - Patient will demonstrate ability to ambulate with LRD at speed >1.0 m/s for decreased risk off falls. - Patient will report >18 point (MCID) improvement on DHI questionnaire to significantly improve tolerance to functional activities. - Patient will display improved 4-item DGI testing > 10/12 to decrease falls risk with dynamic gait tasks. Treatment Plan/Direct Interventions Canalith Repositioning,Gait Training,Manual Therapy, Neuromuscular Re-ed,Self-Care/ Home Management,Therapeutic Activities,Therapeutic Exercises Frequency/Duration 1-2x/week for 8 weeks, decreasing frequency as able Patient Will Be Discharged From Therapy Completion of LTG(s),Skills Plateau,Independent w/HEP, Independently Progressing Evaluation Billing Untimed Code Treatment Minutes 50 Complexity Low Certification Information Initial Certification Date 06/18/23 Ending Certification Date 09/16/23 Provider Signature Shows Agreement With POC & Medical Necessity Physician Signature & Date Requested Please Sign/Date Here Physician Comment/Change : Physician NPI Number #
== END 2023-08-29 10:38 | disposition home or self-care (01) ==
PROVIDERS: PCP Internal Medicine; Visit Provider Internal Medicine
DX: H81.392 Other peripheral vertigo, left ear (principal); R26.81 Unsteadiness on feet; Z51.89 Encounter for other specified aftercare
CPT/HCPCS: 80048; 97110; 97112; 97161

== ENCOUNTER 2023-12-25 10:27 | Outpatient (CLI) | payer MEDICARE, OTHER, SELFPAY ==
--- OUTSIDE RECORDS SUMMARY | 2023-12-25 10:29 | XMS_ITS | Clinical Summary ---
Author Organization [facility] Address [address] [place] [address] Care Team Providers Care Pugger Helper Name Role Phone Clinic, [facility] Unavailable Unavailable Md, Not Listed Primary [...] Comments Blood Pressure 137/58 04/15/2017 11:00 AM TEST GRADER Pulse 65 04/15/2017 11:00 AM TEST GRADER Temperature 36.5 ??C (97.7 ??F) 04/15/2017 1 0:15 AM TEST GRADER Respiratory Rate 14 04/15/2017 11:0 0 AM TEST GRADER Oxygen Saturation 97% 04/15/2017 11: 00 AM TEST GRADER Inhaled Oxygen Concentration - - Weight 77.9 kg (171 lb 12.8 oz) 04/15/2017 6:19 AM TEST GRADER Height 162.6 cm (5' 4) 04/15/2017 6:19 AM TEST GRADER Body Mass Index 29.49 04/15/2017 6:19 AM TEST GRADER Plan of Treatment Health Maintenance Due Date Last Done Comments Lipid Screening 1935 Adult Tetanus Booster 1954 Zoster Vaccine (1 of 2) 1985 RSV 60+ Yrs (1 - 1-dose 60+ series) 1995 Pneumococcal 65+ (1 of 1 - PCV) 2000 Yearly Review of HCD 02/12/2018 02/12/2017 COVID-19 Vaccine ( - 2022-24 season) 2022 Influenza Vaccine (#1) 2023 Medical Devices Implanted Type Area Appellate Law Clerk Device Identifier Shelf Expiration Date Model / Serial / Lot Mesh Y Restorelle 24x4cm - [id number] Implanted:Qty: 1 on 04/15/2017 by Wilber Alvarado MD at [facility] Sling N/A: Pelvis Coloplast Dona 11/07/2019 [id number] / / [id number] Advance Directives For more information, please contact: [phone] Documents on File Type Date Recorded Patient Investor Relations Analyst Expl anation HCD - Complete 04/24/2017 8:42 AM Care Teams Pugger Helper Relationship Specialty Start Date End Date Clinic, [facility] PCP - Primary Care Clinic 04/14/17 , Not Listed no address PCP - General Internal Medicine 04/14/17
--- OUTSIDE RECORDS SUMMARY | 2023-12-25 10:29 | XMS_ITS | Clinical Summary ---
Author Organization [facility] Address [place], [place] [address] Care Team Providers Care Founder President And Ceo Name Role Phone Clinic, No Pcp Or Primary Care Provider Unavaila ble Allergies No known active allergies Medications Medication Sig Dispensed Refills Start Date End Date Status PREMARIN LOW DOSE 0.45 mg tablet 07/05/2016 Active levothyroxine (SYNTHROID) 125 mcg tablet 07/04/2016 Active levETIRAcetam (KEPPRA) 500 mg tablet 05/15/2016 Active metoprolol succinate (TOPROL XL) 25 mg Sustained-Release tablet 06/20/2016 Active Social History Tobacco Use Types [...] Health Maintenance Due Date Last Done Comments Tdap 1946 Depression screening for age 12+ 1947 BMI (ht and wt on same day) for age 18+ 1953 Tetanus booster 1955 Zoster (shingles) series for age 50+ (1 of 2) 06/12/18 86 DEXA/DXA scan for age 65+ 2000 Pneumococcal series for age 65+ (1 of 1 - PCV) 001 COVID-19 vaccine series (1 - 2022-24 season) 3 Influenza for age 65+ 12/28/2023 Care Teams Founder President And Ceo Relationship Specialty Start Date End Date Clinic, No Pcp Or . PCP - General 08/13/16
--- OUTSIDE RECORDS SUMMARY | 2023-12-25 10:29 | XMS_ITS | Referral Summary ---
Author Organization [facility] Address [address] [place] [address] Care Team Providers Care Mechanical Energy Engineer Name Role Phone Clinic, [facility] Unavailable Unavailable Md, Not Listed Primary Care [...] Comments Blood Pressure 137/58 04/15/2017 11:00 AM SHAREPOINT SOLUTIONS ARCHITECT Pulse 65 04/15/2017 11:00 AM SHAREPOINT SOLUTIONS ARCHITECT Temperature 36.5 ??C (97.7 ??F) 04/15/2017 1 0:15 AM SHAREPOINT SOLUTIONS ARCHITECT Respiratory Rate 14 04/15/2017 11:0 0 AM SHAREPOINT SOLUTIONS ARCHITECT Oxygen Saturation 97% 04/15/2017 11: 00 AM SHAREPOINT SOLUTIONS ARCHITECT Inhaled Oxygen Concentration - - Weight 77.9 kg (171 lb 12.8 oz) 04/15/2017 6:19 AM SHAREPOINT SOLUTIONS ARCHITECT Height 162.6 cm (5' 4) 04/15/2017 6:19 AM SHAREPOINT SOLUTIONS ARCHITECT Body Mass Index 29.49 04/15/2017 6:19 AM SHAREPOINT SOLUTIONS ARCHITECT Plan of Treatment Not on file Medical Devices Implanted Type Area Piano Sounding Board Matcher Device Identifier Shelf Expiration Date Model / Serial / Lot Mesh Y Restorelle 24x4cm - [id number] Implanted:Qty: 1 on 04/15/2017 by Wilber Alvarado MD at [facility] Sling N/A: Pelvis Coloplast Dona 11/07/2019 [id number] / / [id number] Advance Directives For more information, please contact: [phone] Documents on File Type Date Recorded Patient Talent Analyst Expl anation HCD - Complete 04/24/2017 8:42 AM Care Teams Mechanical Energy Engineer Relationship Specialty Start Date End Date Clinic, [facility] PCP - Primary Care Clinic 04/14/17 Md, Not Listed no address PCP - General Internal Medicine 04/14/17
== END 2023-12-25 10:28 | disposition home or self-care (01) ==
LOC: NFLDREF 10:28
PROVIDERS: PCP Internal Medicine; Visit Provider Internal Medicine
DX: E03.9 Hypothyroidism, unspecified (principal); R82.90 Unspecified abnormal findings in urine
CPT/HCPCS: 84439; 84443; 87086

== ENCOUNTER 2024-01-08 08:42 | Outpatient (CLI) | payer MEDICARE, OTHER, SELFPAY ==
--- OUTSIDE RECORDS SUMMARY | 2024-01-08 08:46 | XMS_ITS | Clinical Summary ---
Author Organization [facility] Address [address] [place] [address] Care Team Providers Care Pharmaceutical Plant Operator Name Role Phone Clinic, [facility] Unavailable Unavailable Md, Not Listed Primary Care [...] Comments Blood Pressure 137/58 04/15/2017 11:00 AM SEISMOGRAPH OBSERVER Pulse 65 04/15/2017 11:00 AM SEISMOGRAPH OBSERVER Temperature 36.5 ??C (97.7 ??F) 04/15/2017 1 0:15 AM SEISMOGRAPH OBSERVER Respiratory Rate 14 04/15/2017 11:0 0 AM SEISMOGRAPH OBSERVER Oxygen Saturation 97% 04/15/2017 11: 00 AM SEISMOGRAPH OBSERVER Inhaled Oxygen Concentration - - Weight 77.9 kg (171 lb 12.8 oz) 04/15/2017 6:19 AM SEISMOGRAPH OBSERVER Height 162.6 cm (5' 4) 04/15/2017 6:19 AM SEISMOGRAPH OBSERVER Body Mass Index 29.49 04/15/2017 6:19 AM SEISMOGRAPH OBSERVER Plan of Treatment Health Maintenance Due Date Last Done Comments Lipid Screening 1935 Adult Tetanus Booster 1954 Zoster Vaccine (1 of 2) 1985 RSV 60+ Yrs (1 - 1-dose 60+ series) 1995 Pneumococcal 65+ (1 of 1 - PCV) 2000 Yearly Review of HCD 02/12/2018 02/12/2017 COVID-19 Vaccine ( - season) 2023 Influenza Vaccine (#1) 2023 Medical Devices Implanted Type Area Carpet Sewing Machine Operator Device Identifier Shelf Expiration Date Model / Serial / Lot Mesh Y Restorelle 24x4cm - [id number] Implanted:Qty: 1 on 04/15/2017 by Wilber Alvarado MD at [facility] Sling N/A: Pelvis Coloplast Dona 11/07/2019 [id number] / / [id number] Advance Directives For more information, please contact: [phone] Documents on File Type Date Recorded Patient Women'S Lacrosse Coach Expl anation HCD - Complete 04/24/2017 8:42 AM Care Teams Pharmaceutical Plant Operator Relationship Specialty Start Date End Date Clinic, [facility] PCP - Primary Care Clinic 04/14/17 , Not Listed no address PCP - General Internal Medicine 04/14/17
--- OUTSIDE RECORDS SUMMARY | 2024-01-08 08:46 | XMS_ITS | Referral Summary ---
Author Organization [facility] Address [address] [place] [address] Care Team Providers Care Senior Premium Auditor Name Role Phone Clinic, [facility] Unavailable Unavailable Md, Not Listed Primary [...] Comments Blood Pressure 137/58 04/15/2017 11:00 AM CUSTOMER SALES REPRESENTATIVE Pulse 65 04/15/2017 11:00 AM CUSTOMER SALES REPRESENTATIVE Temperature 36.5 ??C (97.7 ??F) 04/15/2017 1 0:15 AM CUSTOMER SALES REPRESENTATIVE Respiratory Rate 14 04/15/2017 11:0 0 AM CUSTOMER SALES REPRESENTATIVE Oxygen Saturation 97% 04/15/2017 11: 00 AM CUSTOMER SALES REPRESENTATIVE Inhaled Oxygen Concentration - - Weight 77.9 kg (171 lb 12.8 oz) 04/15/2017 6:19 AM CUSTOMER SALES REPRESENTATIVE Height 162.6 cm (5' 4) 04/15/2017 6:19 AM CUSTOMER SALES REPRESENTATIVE Body Mass Index 29.49 04/15/2017 6:19 AM CUSTOMER SALES REPRESENTATIVE Plan of Treatment Not on file Medical Devices Implanted Type Area Finishing Operator Device Identifier Shelf Expiration Date Model / Serial / Lot Mesh Y Restorelle 24x4cm - [id number] Implanted:Qty: 1 on 04/15/2017 by Wilber Alvarado MD at [facility] Sling N/A: Pelvis Coloplast Dona 11/07/2019 [id number] / / [id number] Advance Directives For more information, please contact: [phone] Documents on File Type Date Recorded Patient Director Instructional Material Expl anation HCD - Complete 04/24/2017 8:42 AM Care Teams Senior Premium Auditor Relationship Specialty Start Date End Date Clinic, [facility] PCP - Primary Care Clinic 04/14/17 Md, Not Listed no address PCP - General Internal Medicine 04/14/17
--- OUTSIDE RECORDS SUMMARY | 2024-01-08 08:46 | XMS_ITS | Clinical Summary ---
Author Organization [facility] Address [place], [place] [address] Care Team Providers Care Glass Worker Name Role Phone Clinic, No Pcp Or [...] age 50+ (1 of 2) 06/12/18 86 RSV vaccine for adults or pr egnancy (1 - 1-dose 60+ series) 1995 DEXA/DXA scan for age 65+ 2000 Pneumococcal series for age 65+ (1 of 1 - PCV) 001 COVID-19 vaccine series (1 - 2022- season) 4 Influenza for age 65+ 12/28/2023 Care Teams Glass Worker Relationship Specialty Start Date End Date Clinic, No Pcp Or . PCP - General 08/13/16
--- NOTE | 2024-01-08 09:00 | CRLHL7_ITS ---
For Patients: As a result of the Century Cures Act, medical imaging exams and procedure reports are released immediately into your electronic medical record. You may view this report before your referring provider. If you have questions, please contact your health care provider. INDICATION: Suspected pulmonary nodules. TECHNIQUE: Noncontrast chest CT. COMPARISON: None. No correlative studies or outside correlative reports are available at the time of this dictation. FINDINGS: Both lungs are expanded without pneumothoraces nodules or infiltrates. Mild focal eventration of the posterior left hemidiaphragm with slight basilar atelectasis on the left. There are no pleural or pericardial effusions. The trachea and mainstem bronchi are patent and clear. No thoracic lymphadenopathy. Ectatic/mildly aneurysmally dilated ascending thoracic aorta measuring 4.0 x 4.0 cm. Coronary calcifications and/or coronary artery stents compatible coronary arterial disease. Subtle asymmetric density within the right breast deep to the nipple, image 46 series 2. This can be correlated with any recent mammogram. A follow-up mammogram may be helpful if no recent mammogram was performed. Images of the upper abdomen demonstrates a geographic area of decreased attenuation within the liver. There may be a few additional tiny low-dense lesions in the liver. Consider directed hepatic ultrasound versus a diagnostic quality CT of the abdomen and pelvis with attention directed to the liver. Normal adrenal glands. No splenomegaly. Vascular calcification within the proximal abdominal aorta and splenic arteries. Thoracolumbar scoliosis with the thoracic curvature convex towards the right and the lumbar curvature convex towards the left. Surgically absent gallbladder seen on the lead front desk agent image. No lytic or blastic lesions within the included skeleton. IMPRESSION: 1. No acute cardiopulmonary process identified. 2. No pulmonary nodules. Minor atelectasis left lung base. 3. 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 4. Dense coronary artery calcifications and/or coronary stents. 5. Decreased attenuation within portions of liver. This is nonspecific. Consider ultrasound or CT of the abdomen with attention directed to the liver. Please note that all CT scans at this facility use dose modulation, iterative reconstruction, and/or weight-based dosing when appropriate to reduce radiation dose to as low as reasonably achievable. Dictated by Mauro Melendez MD @ 01/08/2024 4:06:18 PM (Electronically Signed)
== END 2024-01-08 08:43 | disposition home or self-care (01) ==
LOC: CT 08:44
PROVIDERS: PCP Internal Medicine; Visit Provider Internal Medicine
DX: R91.8 Other nonspecific abnormal finding of lung field (principal); I71.21 Aneurysm of the ascending aorta, without rupture; I25.10 Atherosclerotic heart disease of native coronary artery without angina pectoris
CPT/HCPCS: 71250

== ENCOUNTER 2024-05-09 16:18 | Outpatient (CLI) | payer MEDICARE, OTHER, SELFPAY | END 2024-05-09 16:19 | disposition home or self-care (01) | LOC: AMB 05-25 02:35 | PROVIDERS: PCP Internal Medicine; Visit Provider Emergency Medicine | DX: S89.90XA Unspecified injury of unspecified lower leg, initial encounter (principal); S69.90XA Unspecified injury of unspecified wrist, hand and finger(s), initial encounter; W01.0XXA Fall on same level from slipping, tripping and stumbling without subsequent striking against object, initial encounter; Y92.22 Religious institution as the place of occurrence of the external cause | CPT/HCPCS: A0425; A0427 ==

== ENCOUNTER 2024-05-09 16:59 | Emergency (ER) | payer MEDICARE, OTHER, SELFPAY ==
--- OUTSIDE RECORDS SUMMARY | 2024-05-09 17:01 | XMS_ITS | Clinical Summary ---
Author Organization [facility] Address [address] [place] [address] Care Team Providers Care Brinell Tester Name Role Phone Clinic, [facility] Unavailable Unavailable Md, Not Listed Primary Care Provider Unavailabl e Allergies No known active allergies Medications estrogens, conjugated (PREMARIN) 0.3 mg oral tablet [...] 1 tablet by mouth once daily. Active cholecalciferol , Vitamin D3, 1,000 unit oral tablet Take 1,000 Units by mouth once daily. Active multivitamin (CERTAVITE) 18-400 mg-mcg oral tablet Take 1 tablet by mouth once daily. Active triamterene-hyd rochlorothiazid e (DYAZIDE) 37.5-25 mg oral capsule Take by mouth once daily. Active levothyroxine (SYNTHROID) 125 mcg oral tablet Take 125 mcg by mouth once daily. Active aspirin 81 mg oral enteric coated tablet Take 81 mg by mouth once daily. Active famotidine (PEPCID) 10 mg oral tablet Take by mouth once a day as needed. 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 Cystocele, midline 04/14/2017 Social History Tobacco Use Types Packs/Day Years Used Date Smoking Tobacco: Former Smokeless Tobacco: Never Comments Unknown Sex and Gender Information Value Date Recorded Sex Assigned at Not on file Legal Sex Female 1:42 PM CDT Gender Identity Not on file Sexual Orientation Not on file Last Filed Vital Signs Vital Sign Reading Time Taken Comments Blood Pressure 137/58 04/15/2017 11:00 AM PLANT MAINTENANCE TECHNICIAN Pulse 65 04/15/2017 11:00 AM PLANT MAINTENANCE TECHNICIAN Temperature 36.5 C (97.7 F) 04/15/2017 10:15 AM PLANT MAINTENANCE TECHNICIAN Respiratory Rate 14 04/15/2017 11:0 0 AM PLANT MAINTENANCE TECHNICIAN Oxygen Saturation 97% 04/15/2017 11: 00 AM PLANT MAINTENANCE TECHNICIAN Inhaled Oxygen Concentration - - Weight 77.9 kg (171 lb 12.8 oz) 04/15/2017 6:19 AM PLANT MAINTENANCE TECHNICIAN Height 162.6 cm (5' 4) 04/15/2017 6:19 AM PLANT MAINTENANCE TECHNICIAN Body Mass Index 29.49 04/15/2017 6:19 AM PLANT MAINTENANCE TECHNICIAN Plan of Treatment Health Maintenance Due Date Last Done Comments Lipid Screening 1935 Adult Tetanus Booster 1954 Zoster Vaccine (1 of 2) 1985 Pneumococcal 65+ (1 of 1 - PCV) 2000 RSV Vaccines (1 - 1-dose 75+ series) 2010 Yearly Review of HCD 02/12/2018 02/12/2017 COVID-19 Vaccine (1 - 2023- season) 2023 Influenza Vaccine (#1) 2023 Medical Devices Implanted Type Area Online Marketing Manager Device Identifier Shelf Expiration Date Model / Serial / Lot Mesh Y Restorelle 24x4cm - [id number] Implanted:Qty: 1 on 04/15/2017 by Wilber Alvarado MD at [facility] Sling N/A: Pelvis Coloplast Dona 11/07/2019 [id number] / / [id number] Insurance MEDICARE PART A & [place] [id number] Advance Directives For more information, please contact: [phone] Documents on File Type Date Recorded Patient Sizing Sprayer Expl anation HCD - Complete 04/24/2017 8:42 AM Care Teams Brinell Tester Relationship Specialty Start Date End Date [facility] PCP - Primary Care Clinic 04/14/17 , Not Listed no address PCP - General Internal Medicine 04/14/17
--- OUTSIDE RECORDS SUMMARY | 2024-05-09 17:01 | XMS_ITS | Continuity of Care Document ---
Author Organization [place] - [facility], [place] Address [address] [place] [address] Assessment Encounter Date Assessment Date Assessment LastModified by Organization Details LastModified Time 04/26/2024 04/26/2024 Discussed medical conditions with patient today. Ordered three weightbearing radiographs of the right foot at [facility] and reviewed my individual findings with patient as noted above. Educated patient on the etiology, prognosis, treatment options for midfoot arthritis. We discussed both conservative and surgical treatment options today. From a conservative standpoint, I explained that this would be in the form of supportive shoe gear, activity modification, alternate lacing patterns, steroid injection. Debrided nails and calluses without incident as documented. Recommended continued use of supportive shoegear and to monitor for injury and infection. Recommended regular follow-up to prevent complications and to manage pain due to thick, elongated nails and any callus formation. All questions answered. The patient was encouraged to call with any questions or concerns. Patient will follow up in 12 weeks for high risk foot care or sooner if needed. Patient verbalized understanding and is in agreement with the above treatment plan. [email or web address] Not available 04/26/2024 16:28:17 Plan of Treatment Reminders Order Date Submit Date Provider Last Modified By Organization Details Last Modified Time Details Appointments None record ed. Lab None record ed. Referral None record ed. Procedures None record ed. Surgeries None record ed. Imaging None record ed. Medication Orders None record ed. Patient TargetsNo targets recorded. Patient InstructionsNo instructions recorded. Reason for Referral None Reported. Problems Name Problem SNOMED Code Status Onset Date Resolution Date Notes Provider Name and Address Organization Details Recorded Time Hypertensi ve disorder 34940209 Active 2020 Hypertensi ve disorder; Original Code: 8797912494 Original Codesystem : SNOMED CT Classif ication: Medical Co nfirmation Status: Confirmed Not Available [facility] 09:15:52 Foot pain 63911713 Active 2020 Foot pain; Original Code: 738434812 Original Codesystem : SNOMED CT Classif ication: Medical Co nfirmation Status: Confirmed Not Available [facility] 09:15:52 Hypothyroi dism 73247465 Active 2020 Hypothyroi dism; Original Code: 70354640 O riginal Codesystem : SNOMED CT Classif ication: Medical Co nfirmation Status: Confirmed Not Available [facility] 09:15:52 Notes:Acquired hammer toe of first toe Original Code: 510476655 Original Codesystem: SNOMED CT Classification: Medical Confirmation Status: Confirmed Problem Notes None recorded. Procedures Surgical History Date Name Laterality Status Provider Name and Address Organization Details Recorded Time 04/26/2024 NAIL/Callu sDEBRIDEME NT completed RIVER COLEMAN, DPM [address] [place], [address], [facility] - [facility] 04/26/2024 16:26:51 Imaging Results None recorded. Procedure Notes None recorded. Medical Equipment None Reported. Allergies No known drug allergies Medications Name Sig Start Date Stop Date Status Note LastModified by Organization Details LastModified Time lisinopril 20 mg tablet TAKE ONE TABLET BY MOUTH EVERY DAY FOR HYPERTENS ION active Not Available Not Available No t Available triamcinolo ne acetonide 0.1 % topical cream APPLY 1 APPLICATI ON TOPICALLY TWICE A DAY DIRECTED 04/27 completed Not Available Not Available Not Available levetiracet am 250 mg tablet TAKE ONE TABLET(25 0MG) BY MOUTH TWICE A DAY active Not Available Not Available No t Available meclizine 25 mg tablet TAKE 1/2 TABLET (12.5MG) BY MOUTH THREE TIMES DAILY NEEDED FOR DIZZINESS 04/27 completed Not Available Not Available Not Available metoprolol succinate ER 25 mg tablet,exte nded release 24 hr TAKE ONE TABLET BY MOUTH DAILY; FOLLOW UP APPT NEEDED BEFORE FUTURE REFILLS active Not Available Not Available No t Available ondansetron 4 mg disintegrat ing tablet DISSOLVE 1 TABLET ON THE TONGUE EVERY DAY NEEDED FOR NAUSEA AND VOMITING FOR 5 DAYS 04/27 completed Not Available Not Available Not Available levothyroxi ne 112 mcg tablet TAKE ONE TABLET (112 MCG) BY MOUTH EVERY MORNING active Not Available Not Available No t Available cholecalcif diamond (vitamin D3) active Not Available Not Available Not Available hydrochloro thiazide 12.5 mg tablet TAKE ONE TABLET BY MOUTH EVERY MORNING 04/27 completed Not Available Not Available Not Available vit C,E-Zn-ryan r-lutein-ze axan active Not Available Not Available Not Available Vitals Date Recorded Body weight Provider Name an d Address Organization Details Last Updated DateTime 04/26/2024 67475.11 g Amelia Yusuf [place] - [facility] 04/27/2024 11:06:26 Social History None recorded. Functional Status None recorded. Mental Status None recorded. Family History Nothing Reported. Medical History No medical history recorded. Gynecological HistoryNo gynecological history recorded. Obstetrics History GPAL:G 0 P 0 0 0 0 Past Encounters Encounter ID Performer Location Encounter Start Date Encounter Closed Date Diagnosis/Indication Diagnosis SNOMED-CT Code Diagnosis ICD10 Code Diagnosis Note [id number] LADY JAVED [address] [place] [address] 04/26/2024 11:00:08 04/27/2024 10:39:58 Onychomycosis 985854617 B35.1 Pain of to e of left foot 9298890726 67261 M79.675 Pain of to e of right foot 1860143151 66285 M79.674 Peripheral vascular disease 067946802 I73.89 Arthritis of right foot 6305814734 897684 M13.871 Arthritis of left foot 3662933792 871278 M13.872 Acquired h ammer toe of right foot 1741869001 716274 M20.41 Acquired h ammer toe of lesser toe of left foot 6858533624 7874949 M20.42 Metatarsal jozef of right foot 8555505573 71693 M77.41 Metatarsal jozef of left foot 8250388584 86824 M77.42 Health Concerns Section Related Observation LastModified by Organization Detai ls LastModified Time None Recorded Concern Status LastModified by Organization Details LastModified Time None Recorded Payers Encounter Date Sequence Insurance Name Policy Number Policy Stover Covered Member ID Stover Member ID Guarantor Name 04/26/2024 1 [place]ARE [place]: [employer] Carolina Islas [id number] 5 Carolina Islas Notes Date Note Type Note Provider Name and Address Organization Details Recorded Time 04/26/2024 text/html The patient reports having ongoing foot problems for several years. They moved to the area five years ago and previously had a regular autoglazier in [place], [place], where they were seen every three months for thickened painful toenails and calluses on the bottom of their feet. The patient has been using a razor tool to trim calluses but finds it dangerous. The patient experiences intermittent pain on the right foot, particularly on the top, which can be quite severe at times but is not constant. The patient mentions that a physical therapist recommended heel lifts for their right foot, which has helped with back pain. The patient is cautious about shoe selection and has noticed that different shoes affect their back and foot comfort. They are trying to increase their walking but find it challenging in bad weather. The patient had a history of surgery for a Tailor's bunion and a hammer toe RIVER LADY COLEMAN [address] [place], [address], [facility] - [facility] 04/26/2024 16:28:50 OBGyn Episode No OBEpisode recorded.
--- OUTSIDE RECORDS SUMMARY | 2024-05-09 17:01 | XMS_ITS | Data Portability ---
Author Organization [place] - [facility], [place] Address [address] [place] [address] Assessment Encounter Date Assessment Date Assessment LastModified by Organization Details LastModified Time 04/26/2024 04/26/2024 Discussed medical conditions with patient today. Ordered three weightbearing radiographs of the right foot at [facility] and reviewed my individual findings with patient [...] Organization Details Recorded Time Hypertensi ve disorder 21235924 Active 2020 Hypertensi ve disorder; Original Code: 4021096040 Original Codesystem : SNOMED CT Classif ication: Medical Co nfirmation Status: Confirmed Not Available [facility] 3 09:15:52 Foot pain 96374689 Active 2020 Foot pain; Original Code: 752926517 Original Codesystem : SNOMED CT Classif ication: Medical Co nfirmation Status: Confirmed Not Available [facility] 3 09:15:52 Hypothyroi dism 68644918 Active 2020 Hypothyroi dism; Original Code: 37967676 O riginal Codesystem : SNOMED CT Classif ication: Medical Co nfirmation Status: Confirmed Not Available [facility] 3 09:15:52 Notes:Acquired hammer toe of first toe Original Code: 027758975 Original Codesystem: SNOMED CT Classification: Medical Confirmation Status: Confirmed Problem Notes None recorded. Procedures Surgical History Date Name Laterality Status Provider Name and Address Organization Details Recorded Time 04/26/2024 NAIL/Callu sDEBRIDEME NT completed RIVER COLEMAN, DPM [address] [place], [address], [facility] - [facility] 04/26/2024 [...] FOR NAUSEA AND VOMITING FOR 5 DAYS 12/31 /2024 completed Not Available Not Available Not Available [...] Address Organization Details Last Updated DateTime 04/26/2024 21875.11 g Amelia Yusuf [place] - [facility] [...] SNOMED-CT Code Diagnosis ICD10 Code Diagnosis Note [id number] LADY JAVED [address] [place] [address] 04/26/2024 11:00:08 04/27/2024 10:39:58 Onychomycosis 254450501 B35.1 Pain of to e of left foot 7938615920 11526 M79.675 Pain of to e of right foot 2469487741 85635 M79.674 Peripheral vascular disease 436843796 I73.89 Arthritis of right foot 6704418164 673202 M13.871 Arthritis of left foot 5146741718 474806 M13.872 Acquired h ammer toe of right foot 3265314621 228675 M20.41 Acquired h ammer toe of lesser toe of left foot 6251012778 2947079 M20.42 Metatarsal jozef of right foot 8894187021 09854 M77.41 Metatarsal jozef of left foot 9093449582 46019 M77.42 Health Concerns Section Related Observation LastModified by Organization Detai ls LastModified Time None Recorded Concern Status LastModified by Organization Details LastModified Time None Recorded Advance Directives Directive None Recorded Payers Encounter Date Sequence Insurance Name Policy Number Policy Stover Covered Member ID Stover Member ID Guarantor Name 04/26/2024 1 [place]: [employer] Carolina Islas [id number] 5 Carolina Islas Notes Date Note Type Note Provider Name and Address Organization Details Recorded Time 04/26/2024 text/html The patient reports having ongoing foot problems for several years. 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
[2024-05-09 17:02] VITALS: BP 190/79; PULSE 65; RESP 18; TEMP 36.1; O2SAT 98; BMI 28.3
--- OUTSIDE RECORDS SUMMARY | 2024-05-09 17:02 | XMS_ITS | Referral Summary ---
Author Organization [facility] Address [address] [place] [address] Care Team Providers Care Procurement Director Name Role Phone Clinic, [facility] Unavailable Unavailable Md, Not Listed Primary Care [...] for Pain 20 tablet 04/15/2017 10:53 AM NATURAL RESOURCE MANAGER 04/15/2017 Active Active Problems Problem Noted Date [...] Comments Blood Pressure 137/58 04/15/2017 11:00 AM NATURAL RESOURCE MANAGER Pulse 65 04/15/2017 11:00 AM NATURAL RESOURCE MANAGER Temperature 36.5 C (97.7 F) 04/15/2017 10:15 AM NATURAL RESOURCE MANAGER Respiratory Rate 14 04/15/2017 11:0 0 AM NATURAL RESOURCE MANAGER Oxygen Saturation 97% 04/15/2017 11: 00 AM NATURAL RESOURCE MANAGER Inhaled Oxygen Concentration - - Weight 77.9 kg (171 lb 12.8 oz) 04/15/2017 6:19 AM NATURAL RESOURCE MANAGER Height 162.6 cm (5' 4) 04/15/2017 6:19 AM NATURAL RESOURCE MANAGER Body Mass Index 29.49 04/15/2017 6:19 AM NATURAL RESOURCE MANAGER Plan of Treatment Not on file Medical Devices Implanted Type Area Periodicals Library Assistant Device Identifier Shelf Expiration Date Model / Serial / Lot Mesh Y Restorelle 24x4cm - [id number] Implanted:Qty: 1 on 04/15/2017 by Wilber Alvarado MD at [facility] Sling N/A: Pelvis [employer]oplast Dona 11/07/2019 [id number] / / [id number] Insurance MEDICARE PART A & B [facility] [id number] Advance Directives For more information, please contact: [phone] Documents on File Type Date Recorded Patient Yard Rigger Expl anation HCD - Complete 04/24/2017 8:42 AM Care Teams Procurement Director Relationship Specialty [facility] 04/14/17 , Not Listed no address PCP - General Internal Medicine 04/14/17
--- OUTSIDE RECORDS SUMMARY | 2024-05-09 17:02 | XMS_ITS | Clinical Summary ---
Author Organization [facility] Address [address] [place] [address] Care Team Providers Care Second Time Worker Name Role Phone Provider, No Attributed RESOURCE Unavailable Unavailable Allergies No known active allergies Medications METOPROLOL TARTRATE PO Take by mouth 1 time per day Active TRIAMTERENE PO Take by mouth 1 time per day Active LEVOTHYROXINE SODIUM PO Take by mouth 1 time per day Active Estrogens Conjugated (PREMARIN PO) Take by mouth 1 time per day Active Active Problems No known active problems Social History Tobacco Use Types Packs/Day Years Used Date Smoking Tobacco: Former Cigarettes Q uit: 11/05/1974 Smokeless Tobacco: Never Comments No Sex and Gender Information Value Date Recorded Sex Assigned at Not on file Legal Sex Female 1:14 PM CDT Gender Identity Not on file Sexual Orientation Not on file Last Filed Vital Signs Vital Sign Reading Time Taken Comments Blood Pressure 146/71 11/11/2015 1:03 PM CDT Pulse 59 11/11/2015 12:53 PM CDT Temperature 35.9 C (96.6 F) 11/11/2015 12:53 PM CDT Respiratory Rate 12 11/11/2015 12:53 PM CDT Oxygen Saturation 98% 11/11/2015 12:53 PM CDT Inhaled Oxygen Concentration - - Weight 74.8 kg (165 lb) 11/06/2015 1:35 PM CDT w ith shoes Height 162.6 cm (5' 4) 11/06/2015 1:35 PM CDT s tated Body Mass Index 28.32 11/06/2015 1:35 PM CDT Plan of Treatment Health Maintenance Due Date Last Done Comments TSH Every Year 1935 TDAP/TD VACCINE (1 - Tdap) 1956 Diabetes Screening 1980 Pneumococcal Vaccine 50yr + (1 of 1 - PCV) 1985 Zoster Vaccine (1 of 2) 1985 Advance Healthcare Directive document 2000 DEXA/Heel Scan 2000 RSV Vaccine, Adult (1 - 1-do se 75+ series) 2010 Covid-19 Vaccine (2023-2 5 season) 2023 Influenza Vaccine (#1) 2023 Hepatitis B Vaccine Aged Out No longe r eligible based on patient's age to complete this topic Care Teams Second Time Worker Relationship Specialty Start Date End Date Provider, No Attributed, RESOURCE [address] PCP - Attributed Provider 03/18/16
--- OUTSIDE RECORDS SUMMARY | 2024-05-09 17:02 | XMS_ITS | Clinical Summary ---
Author Organization [facility] - [facility] [place] [address] Care Team Providers Care Flight Kitchen Manager Name Role Phone Romel Royal MD Primary Care Provider Unavailab le Source Comments The [facility] EMR consists of medical records from all [facility] and [facility] ([facility]), the [facility] ([facility]), [facility], as well as other affiliates or partners, to include: Access [facility] in [place], [place], [facility], [facility], [facility] [place], [facility], [facility], [place] [facility]), [place] [facility], and [facility]. The EMR may not contain all information available for this patient pursuant to the Care Everywhere program, as well as varying phases of implementation.[facility] Social History Tobacco Use Types Packs/Day Years Used Date Smoking Tobacco: Never Assessed Sex and Gender Information Value Date Recorded Sex Assigned at Not on file Gender Identity Not on file Sexual Orientation Not on file Plan of Treatment Not on file Advance Directives For more information, please contact: [phone] Documents on File Type Date Recorded Patient Receiving Dock Checker Expl anation POWER OF SUPERVISOR COREMAKER - HEALTH CARE 12/03/2006 8:09 AM Care Teams Flight Kitchen Manager Relationship Specialty Start Date End Date Romel Royal MD PCP - General 10/22/06
--- OUTSIDE RECORDS SUMMARY | 2024-05-09 17:02 | XMS_ITS | Clinical Summary ---
Author Organization [facility] Address [place], [place] [address] Care Team Providers Care Angio Technologist Name Role Phone Clinic, No Pcp Or Primary Care Provider Unavaila ble Allergies No known active allergies Medications PREMARIN LOW DOSE 0.45 mg tablet 07/05/2016 Acti ve levothyroxine (SYNTHROID) 125 mcg tablet 07/04/2016 Active levETIRAcetam (KEPPRA) 500 mg tablet 05/15/2016 Active metoprolol succinate (TOPROL XL) 25 mg Sustained-Release tablet 06/20/2016 Active Social History Tobacco Use Types Packs/Day Years Used Date Smoking Tobacco: Never Assessed Comments No Sex and Gender Information Value Date Recorded Sex Assigned at Not on file Legal Sex Female 6:34 AM LD TEACHER Gender Identity Not on file Sexual Orientation Not on file Last Filed Vital Signs Vital Sign Reading Time Taken Comments Blood Pressure 136/77 08/13/2016 1:36 PM CDT Pulse 64 08/13/2016 1:36 PM CDT Temperature 36.6 C (97.8 F) 08/13/2016 1:36 PM CDT Respiratory Rate - - Oxygen Saturation 97% [...] for age 18+ 1953 Tetanus booster 1955 Pneumococcal series for age 50+ (1 of 1 - PCV) 986 Zoster (shingles) series for age 50+ (1 of 2) 06/12/18 86 DEXA/DXA scan for age 65+ 2000 RSV vaccine for adults or pr egnancy (1 - 1-dose 75+ series) 2010 COVID-19 vaccine series ( - 2023-25 season) Influenza for age 65+ 12/28/2023 Insurance [employer] [facility] MEDICARE [place] ONLY Care Teams Angio Technologist Relationship Specialty Start Date End Date Clinic, No Pcp Or . PCP - General 08/13/16
--- OUTSIDE RECORDS SUMMARY | 2024-05-09 17:02 | XMS_ITS | Referral Summary ---
Author Organization [facility] - [facility] [place] [address] Care Team Providers Care Video Tape Editor Name Role Phone Romel Royal MD Primary Care Provider Unavailab le Source Comments The [facility] EMR consists of medical records from all [facility] and [facility] ([facility]), the [facility] ([facility]), [facility], as well as other affiliates or partners, to include: Access [facility] in [place], [place], [facility], [facility] [place] F[facility] Care, [facility] [place], [facility] [place], [facility], [place] [facility]), [place] [facility], and [facility]. The EMR may not contain all information available for this patient pursuant to the Care Everywhere program, as well as varying phases of implementation.[facility] - [facility] Social History Tobacco Use Types Packs/Day Years Used Date Smoking Tobacco: Never Assessed Sex and Gender Information Value Date Recorded Sex Assigned at Not on file Gender Identity Not on file Sexual Orientation Not on file Plan of Treatment Not on file Care Teams Video Tape Editor Relationship Specialty Start Date End Date Romel Royal MD PCP - General 10/22/06
--- OUTSIDE RECORDS SUMMARY | 2024-05-09 17:02 | XMS_ITS | Continuity of Care Document ---
Author Name [facility] User [email or web address] l[facility] Address Unknown Organization Unknown Address Unknown Procedures FILTER APPLIED:Only known Procedures with Onset Date within the last 5 years Procedure Date Procedure Provider Additiona l Information Status THERAPEUTIC EXERCISES (92888) Completed METABOLIC PANEL TOTAL CA (09911) Completed NEUROMUSCULAR REEDUCATION (41855) Completed PT EVAL LOW COMPLEX 20 MIN (81550) Completed METABOLIC PANEL TOTAL CA (42120) Completed CT ANGIOGRAPHY NECK (36281) Completed PROTHROMBIN TIME (77858) Completed COMPLETE CBC W/AUTO DIFF WBC (13929) Completed ASSAY OF TROPONIN QUANT (16189) Completed METABOLIC PANEL TOTAL CA (54888) Completed CT HEAD/BRAIN W/O DYE (20990) Completed ROUTINE VENIPUNCTURE (26387) Completed THROMBOPLASTIN TIME PARTIAL (93306) Completed EMERGENCY DEPT VISIT HI MDM (43590) Completed CT ANGIOGRAPHY HEAD (62315) Completed EMERGENCY DEPT VISIT MOD MDM (45176) Completed MEASURE BLOOD OXYGEN LEVEL (60928) Completed ELECTROCARDIOGRAM TRACING (43025) Completed RESP VIRUS 3-5 TARGETS (37469) Completed ASSAY OF FREE THYROXINE (53372) Completed ASSAY THYROID STIM HORMONE (60905) Completed THERAPEUTIC EXERCISES (56075) Completed MANUAL THERAPY 1/> REGIONS (65894) Completed PT EVAL MOD COMPLEX 30 MIN (26096) Completed SELF CARE MNGMENT TRAINING (57799) Completed Encounters FILTER APPLIED:Only known Encounters with Admission Date within the last 5 years Encounter Location Admission Discharge Billing Code Supervisor Lump Room Shalom rodrigez [facility] Emergency Brett Fenton [facility]
--- NOTE | 2024-05-09 17:08 | CRLHL7_ITS ---
For Patients: As a result of the Century Cures Act, medical imaging exams and procedure reports are released immediately into your electronic medical record. You may view this report before your referring provider. If you have questions, please contact your health care provider. Indication: Pain. Technique: Left hand, 3 views. Comparison: None. Findings/Impression: Bones: Decreased osseous mineralization. Alignment is normal. No displaced fractures or bone lesions. Joint spaces: Degenerative changes most pronounced at the triscaphe joint. Soft tissues: Unremarkable. Dictated by Ky Joseph MD @ 05/09/2024 6:31:14 PM (Electronically Signed)
--- NOTE | 2024-05-09 17:09 | CRLHL7_ITS ---
For Patients: As a result of the Century Cures Act, medical imaging exams and procedure reports are released immediately into your electronic medical record. You may view this report before your referring provider. If you have questions, please contact your health care provider. Indication: Pain. Technique: Right knee, 3 views. Comparison: None. Findings/Impression: Bones: Right knee arthroplasty without hardware complication. Alignment is normal. No displaced fractures or bone lesions. Joint spaces: Unremarkable. Soft tissues: Unremarkable. Dictated by Ky Joseph MD @ 05/09/2024 6:27:43 PM (Electronically Signed)
--- NOTE | 2024-05-09 19:02 | ED_ITS ---
HPI - Fall General Time Seen by Provider: 19:02 Date Seen: 05/09/24 Chief Complaint: Fall/Minor Trauma Stated Complaint: Fall/Knee pain Time Seen by Provider: 05/09/24 19:02 Source: patient Mode of arrival: ambulatory Limitations: no limitations History of Present Illness HPI Narrative: Mrs. Islas is a very pleasant 88-year-old female with history of bilateral knee r eplacement who comes to the emergency room for evaluation regarding a fall with left thumb hand and right knee injury. Patient was in [place] today and was walking down the aisle when her foot caught and she fell landing 1st on her right knee and then on her left hand. Since that time she is able to walk on her right knee and she is not as concerned about that as is the concern regarding her right hand pain. She now has bruising and swelling on the back of her hand and her thumb. She feels like her thumb is more painful than the rest of the hand. Related Data Home Medications ?Medication ?Instructions ?Recorded ?Confirmed cholecalciferol (vitamin D3) 25 25 mcg PO QDAY 10/30/21 04/26/24 mcg (1,000 unit) capsule vit C 250 mg-E 90 mg-zinc 40 1 tab PO QAM AND QPM 10/30/21 04/26/24 mg-copper 1 [id number] chew tablet (PreserVision AREDS-2) Previous Rx's ?Medication ?Instructions ?Recorded lisinopril 20 mg tablet 20 mg PO QDAY Hypertension #90 tabs 07/24/23 metoprolol succinate 25 mg 25 mg PO DAILY #90 tabs 07/28/23 tablet,extended release 24 hr levetiracetam 250 mg tablet 250 mg PO BID #180 tabs 01/20/24 levothyroxine 112 mcg capsule 112 mcg PO QDAY #90 caps 04/27/24 Allergies Allergy/AdvReac Type Severity Reaction Status Date / Time No Known Allergies Allergy Verified 04/26/24 14:50 Review of Systems Status of ROS: Reports: 6 or more systems reviewed and unremarkable except as noted in History and below [facility] Medical History Hallucination ?R44.3 - Hallucinations, unspecified (ICD-10) Hearing loss ?H91.90 - Unspecified hearing loss, unspecified ear (ICD-10) Pelvic floor weakness ?N81.89 - Other female genital prolapse (ICD-10) Urinary tract infection ?N39.0 - Urinary tract infection, site not specified (ICD-10) Postoperative hemorrhage Encounter for postoperative wound check ?Z48.89 - Encounter for other specified surgical aftercare (ICD-10) History of seizure ?Z87.898 - Personal history of other specified conditions (ICD-10) Surgical History Status post bilateral knee replacements ?Z96.653 - Presence of artificial knee joint, bilateral (ICD-10) Status post inguinal hernia repair ?Z98.890 - Other specified postprocedural states (ICD-10) ?Z87.19 - Personal history of other diseases of the digestive system (ICD-10) Status post cholecystectomy ?Z90.49 - Acquired absence of other specified parts of digestive tract (ICD- 10) History of thyroidectomy ?E89.0 - Postprocedural hypothyroidism (ICD-10) History of hysterectomy ?Z90.710 - Acquired absence of both cervix and uterus (ICD-10) History of bilateral cataract extraction ?Z98.41 - Cataract extraction status, right eye (ICD-10) ?Z98.42 - Cataract extraction status, left eye (ICD-10) History of foot surgery ?Z98.890 - Other specified postprocedural states (ICD-10) History of bladder suspension procedure ?Z98.890 - Other specified postprocedural states (ICD-10) ?Z87.448 - Personal history of other diseases of urinary system (ICD-10) History of SCC (squamous cell carcinoma) of skin ?Z85.828 - Personal history of other malignant neoplasm of skin (ICD-10) Social History What is your current living situation?: I presently have a place to live Problems where you live: no known problems In the past 12 months, utilities in danger of being shut off: no In past 12 months, lack of transportation kept you from medical appts, meetings, work, or getting things needed for daily living: no In the past 12 mos, have been you worried that your food would run out before you had money to buy more?: never true In the past 12 mos, the food you bought just didn't last and you didn't have money to buy more?: never true Smoking Status: Former smoker What tobacco products do you use: cigarettes Smoking quit date/years: >15 years ago Do you use any of these nicotine containing products: None Second hand tobacco smoke exposure: No How often does anyone, including family, friends and others, physically hurt you : never How often does anyone, including family, friends and others, insult or talk down to you: never How often does anyone, including family, friends and others, threaten you with harm: never How often does anyone, including family, friends and others, scream or curse at you: never Exam Narrative: Exam Narrative: Alert and oriented. No acute distress. Heart with regular rate and rhythm and lungs are clear. Head is atraumatic. Examination of the right knee shows a vertical well-healed scar. There is a superficial abrasion. There is a small amount of blood at this site. Otherwise no ecchymosis is noted. Examination of the left hand shows significant hematoma over the 2nd metacarpal. Patient also has blood at the distal end of her finger tip on her thumb. Point tenderness noted throughout. Const: Vital Signs, click to edit/add: Vital Signs - 24 hr 05/09/24 17:02 Temperature 97.0 F L Pulse Rate [Pulse Oximeter] 65 Respiratory Rate 18 Blood Pressure [Ri ght Upper Arm] 190/79 H Pulse Oximetry 98 Oxygen Delivery Me thod Room Air Documenting provider has reviewed patient's vital signs: yes Course Course ED Course: No significant history of prodromal symptoms. Patient notes that her thumb is the most painful. X-rays had been ordered prior to me seeing patient and these are reassuring. However I do tell patient that as we get over occur and we have less mineralization of our bones a fracture could be missed and if she has ongoing pain she will need to follow-up for repeat films. Vital Signs Vital signs: Initial Vital Signs Temperature 97.0 F L 05/09/24 17:02 Temperature Source Temporal Artery Scan 05/09/24 17:02 Pulse Rate 65 05/09/24 17:02 Respiratory Rate 18 05/09/24 17:02 Blood Pressure 190/79 H 05/09/24 17:02 Blood Pressure Mean 116 H 05/09/24 17:02 Blood Pressure Position Sitting 05/09/24 17:02 Pulse Oximetry 98 05/09/24 17:02 Oxygen Delivery Method Room Air 05/09/24 17:02 Vital Signs Temperature 97.0 F L 05/09/24 17:02 Pulse Rate 65 05/09/24 17:02 Respiratory Rate 18 05/09/24 17:02 Blood Pressure 190/79 H 05/09/24 17:02 Pulse Oximetry 98 05/09/24 17:02 Oxygen Delivery Method Room Air 05/09/24 17:02 Temperature 97.0 F L 05/09/24 17:02 Pulse Rate 65 05/09/24 17:02 Respiratory Rate 18 05/09/24 17:02 Blood Pressure 190/79 H 05/09/24 17:02 Pulse Oximetry 98 05/09/24 17:02 Oxygen Delivery Method Room Air 05/09/24 17:02 MDM - Fall MDM Narrative Medical decision making narrative: 1. Left hand injury-at this time will place thumb spica splint for support. Even though x-rays are negative I think this will help with the discomfort. Recommend Tylenol or ibuprofen as needed for pain. Follow-up in the next 5 days for ongoing pain as there may be an occult fracture that we are not seeing today and would recommend repeat x-rays. 2. Right knee [id number] again reassuring. 3. Disposition-home at this time. Ice to areas of discomfort. Seek medical attention for continued or worsening symptoms. Medical Records Attestation: I reviewed the patient's medical records. Imaging Data Left hand x-ray: Attestation: I have reviewed the pertinent imaging results. My impression: No evidence evidence of fracture Radiologist's impression: Bones: Decreased osseous mineralization. Alignment is normal. No displaced fractures or bone lesions. Joint spaces: Degenerative changes most pronounced at the triscaphe joint. Soft tissues: Unremarkable. Right knee x-ray: Attestation: I have reviewed the pertinent imaging results. My impression: I do not note any fractures Radiologist's impression: Findings/Impression: Bones: Right knee arthroplasty without hardware complication. Alignment is normal. No displaced fractures or bone lesions. Joint spaces: Unremarkable. Soft tissues: Unremarkable. Discharge Plan Discharge Clinical Impression: Injury of left thumb, Hematoma of left hand, Injury of knee, right Patient Disposition: Home, Self-Care Condition: Improved Additional Instructions: We did not see any fractures on your x-rays today but should you find yourself with continued pain after the next 3 or 4 days please seek medical attention for reexamination and possible repeat of your x-rays. Tylenol or ibuprofen may be used for discomfort. Return to the emergency room as needed. Prescriptions: No Action PreserVision AREDS-2 250-90-40-1 mg tablet,chewable 1 tab PO QAM AND QPM cholecalciferol (vitamin D3) 25 mcg (1,000 unit) capsule 25 mcg PO QDAY lisinopril 20 mg tablet 20 mg PO QDAY Qty: 90 3RF metoprolol succinate 25 mg tablet extended release 24 hr 25 mg PO DAILY Qty: 90 3RF Rx Instructions: follow up appt needed before future refills levetiracetam 250 mg tablet 250 mg PO BID Qty: 180 1RF levothyroxine 112 mcg capsule 112 mcg PO QDAY Qty: 90 2RF Follow Up/Referrals: Chun Curtis MD [Primary Care Provider] - Stand Alone Forms: [employer] Info Instructions
[2024-05-09 19:47] VITALS: BP 203/85; PULSE 78; RESP 18
--- OUTSIDE RECORDS SUMMARY | 2024-05-09 19:54 | XMS_ITS | Clinical Summary ---
Author Organization [facility] [place] [address] Care Team Providers Care Glass Sander Name Role Phone Romel Royal MD Primary Care Provider Unavailab le Source Comments The [facility] EMR consists of medical records from all [facility] and [facility] ([facility]), the [facility] ([facility]), [facility], as well as other affiliates or partners, to include: [facility] in [place], [place], [facility], [facility], [facility], [facility], [facility], [facility]), [facility], and [facility]. The EMR may not contain all information available for this patient pursuant to the Care Everywhere program, as well as varying phases of implementation.[facility] Social History Tobacco Use Types Packs/Day Years Used Date Smoking Tobacco: Never Assessed Sex and Gender Information Value Date Recorded Sex Assigned at Not on file Gender Identity Not on file Sexual Orientation Not on file Plan of Treatment Not on file Advance Directives For more information, please contact: [phone] Documents on File Type Date Recorded Patient Director Market Research Expl anation POWER OF TREE SURGEON HELPER - HEALTH CARE 12/03/2006 8:09 AM Care Teams Glass Sander Relationship Specialty Start Date End Date Romel Royal MD PCP - General 10/22/06
--- OUTSIDE RECORDS SUMMARY | 2024-05-09 19:54 | XMS_ITS | Clinical Summary ---
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 PCP - General 08/13/16
--- OUTSIDE RECORDS SUMMARY | 2024-05-09 19:54 | XMS_ITS | Referral Summary ---
Author Organization [facility] [place] [address] Care Team Providers Care Fire Extinguisher Inspector Name Role Phone Romel Royal MD Primary Care Provider Unavailab le Source Comments The [facility] EMR consists of medical records from all [facility] and [facility] ([facility]), the [facility]note 2[facility] ([facility]), [facility], as well as other affiliates or partners, to include: [facility] in [place], [place], [facility], [facility], [facility] [place], [facility] [place], [facility], [facility], and [facility]. The EMR may not contain all information available for this patient pursuant to the Care Everywhere program, as well as varying phases of implementation.[facility] Social History Tobacco Use Types Packs/Day Years Used Date Smoking Tobacco: Never Assessed Sex and Gender Information Value Date Recorded Sex Assigned at Not on file Gender Identity Not on file Sexual Orientation Not on file Plan of Treatment Not on file Care Teams Fire Extinguisher Inspector Relationship Specialty Start Date End Date Romel Royal MD PCP - General 10/22/06
--- OUTSIDE RECORDS SUMMARY | 2024-05-09 19:54 | XMS_ITS | Clinical Summary ---
Author Organization [employer] [facility] Address [address] [place] [address] Care Team Providers Care Row Boss Hoeing Name Role Phone Provider, No Attributed RESOURCE [...] age to complete this topic Care Teams Row Boss Hoeing Relationship Specialty Start Date End Date Provider, No Attributed, RESOURCE [address] PCP - Attributed Provider 03/18/16
--- OUTSIDE RECORDS SUMMARY | 2024-05-09 19:54 | XMS_ITS | Continuity of Care Document ---
Author Name [facility] User [email or web address] llowed Address Unknown Organization Unknown Address Unknown Procedures FILTER APPLIED:Only known Procedures with Onset Date within the last 5 years Procedure Date Procedure Provider Additiona l Information Status THERAPEUTIC EXERCISES (13457) Completed METABOLIC PANEL TOTAL CA (66987) Completed NEUROMUSCULAR REEDUCATION (36884) Completed PT EVAL LOW COMPLEX 20 MIN (21953) Completed METABOLIC PANEL TOTAL CA (91228) Completed CT ANGIOGRAPHY NECK (60567) Completed PROTHROMBIN TIME (34330) Completed COMPLETE CBC W/AUTO DIFF WBC (28584) Completed ASSAY OF TROPONIN QUANT (40648) Completed METABOLIC PANEL TOTAL CA (35338) Completed CT HEAD/BRAIN W/O DYE (93396) Completed ROUTINE VENIPUNCTURE (54512) Completed THROMBOPLASTIN TIME PARTIAL (87528) Completed EMERGENCY DEPT VISIT HI MDM (59349) Completed CT ANGIOGRAPHY HEAD (48820) Completed EMERGENCY DEPT VISIT MOD MDM (32292) Completed MEASURE BLOOD OXYGEN LEVEL (71176) Completed ELECTROCARDIOGRAM TRACING (14315) Completed RESP VIRUS 3-5 TARGETS (54893) Completed ASSAY OF FREE THYROXINE (14252) Completed ASSAY THYROID STIM HORMONE (93317) Completed THERAPEUTIC EXERCISES (30554) Completed MANUAL THERAPY 1/> REGIONS (27283) Completed PT EVAL MOD COMPLEX 30 MIN (71012) Completed SELF CARE MNGMENT TRAINING (49526) Completed Encounters FILTER APPLIED:Only known Encounters with Admission Date within the last 5 years Encounter Location Admission Discharge Billing Code Raw Shellfish Preparer Shalom rodrigez [facility] Emergency [facility] [place] [facility]
--- OUTSIDE RECORDS SUMMARY | 2024-05-09 19:54 | XMS_ITS | Referral Summary ---
Author Organization [facility] Address [address] [place] [address] Care Team Providers Care Cardiothoracic Icu Rn Name Role Phone Clinic, [facility] Unavailable Unavailable Md, Not Listed Primary Care [...] for Pain 20 tablet 04/15/2017 10:53 AM LADIES ATTENDANT 04/15/2017 Active Active Problems Problem Noted Date [...] Comments Blood Pressure 137/58 04/15/2017 11:00 AM LADIES ATTENDANT Pulse 65 04/15/2017 11:00 AM LADIES ATTENDANT Temperature 36.5 C (97.7 F) 04/15/2017 10:15 AM LADIES ATTENDANT Respiratory Rate 14 04/15/2017 11:0 0 AM LADIES ATTENDANT Oxygen Saturation 97% 04/15/2017 11: 00 AM LADIES ATTENDANT Inhaled Oxygen Concentration - - Weight 77.9 kg (171 lb 12.8 oz) 04/15/2017 6:19 AM LADIES ATTENDANT Height 162.6 cm (5' 4) 04/15/2017 6:19 AM LADIES ATTENDANT Body Mass Index 29.49 04/15/2017 6:19 AM LADIES ATTENDANT Plan of Treatment Not on file Medical Devices Implanted Type Area Public Interviewer Device Identifier Shelf Expiration Date Model / Serial / Lot Mesh Y Restorelle 24x4cm - [id number] Implanted:Qty: 1 on 04/15/2017 by Wilber Alvarado MD at [facility] Sling N/A: Pelvis Coloplast Dona 11/07/2019 [id number] / / [id number] Insurance MEDICARE PART A & B [facility] [place] [id number] Advance Directives For more information, please contact: [phone] Documents on File Type Date Recorded Patient Manager Stars Expl anation HCD - Complete 04/24/2017 8:42 AM Care Teams Cardiothoracic Icu Rn Relationship [facility] 04/14/17 , Not Listed no address PCP - General Internal Medicine 04/14/17
--- OUTSIDE RECORDS SUMMARY | 2024-05-09 19:54 | XMS_ITS | Clinical Summary ---
Author Organization [facility] Address [address] [place] [address] Care Team Providers Care Biopsychologist Name Role Phone Clinic, [facility] Unavailable Unavailable Md, Not Listed Primary [...] for Pain 20 tablet 04/15/2017 10:53 AM DELICATESSEN CLERK 04/15/2017 Active Active Problems Problem Noted Date [...] Comments Blood Pressure 137/58 04/15/2017 11:00 AM DELICATESSEN CLERK Pulse 65 04/15/2017 11:00 AM DELICATESSEN CLERK Temperature 36.5 C (97.7 F) 04/15/2017 10:15 AM DELICATESSEN CLERK Respiratory Rate 14 04/15/2017 11:0 0 AM DELICATESSEN CLERK Oxygen Saturation 97% 04/15/2017 11: 00 AM DELICATESSEN CLERK Inhaled Oxygen Concentration - - Weight 77.9 kg (171 lb 12.8 oz) 04/15/2017 6:19 AM DELICATESSEN CLERK Height 162.6 cm (5' 4) 04/15/2017 6:19 AM DELICATESSEN CLERK Body Mass Index 29.49 04/15/2017 6:19 AM DELICATESSEN CLERK Plan of Treatment Health Maintenance Due Date Last Done Comments Lipid Screening 1935 Adult Tetanus Booster 1954 Zoster Vaccine (1 of 2) 1985 Pneumococcal 65+ (1 of 1 - PCV) 2000 RSV Vaccines (1 - 1-dose 75+ series) 2010 Yearly Review of HCD 02/12/2018 02/12/2017 COVID-19 Vaccine (1 - 2023- season) 2023 Influenza Vaccine (#1) 2023 Medical Devices Implanted Type Area Gre Instructor Device Identifier Shelf Expiration Date Model / Serial / Lot Mesh Y Restorelle 24x4cm - [id number] Implanted:Qty: 1 on 04/15/2017 by Wilber Alvarado MD at [facility] Sling N/A: Pelvis Coloplast Dona 11/07/2019 [id number] / / [id number] Insurance MEDICARE PART A & B [facility] [place] [id number] Advance Directives For more information, please contact: [phone] Documents on File Type Date Recorded Patient Flooring Sales Manager Expl anation HCD - Complete 04/24/2017 8:42 AM Care Teams Biopsychologist Relationship Specialty Start Date End Date [facility] PCP - Primary Care Clinic 04/14/17 , Not Listed no address PCP - General Internal Medicine 04/14/17
== END 2024-05-09 19:50 | disposition home or self-care (01) ==
LOC: ED 19:52
PROVIDERS: Emergency Provider Family Medicine; PCP Internal Medicine
DX: S60.222A Contusion of left hand, initial encounter (principal); S80.01XA Contusion of right knee, initial encounter; W01.0XXA Fall on same level from slipping, tripping and stumbling without subsequent striking against object, initial encounter
CPT/HCPCS: 73130; 73562; 99283; 99284

== ENCOUNTER 2024-07-21 15:30 | Outpatient (RCR) | payer MEDICARE, OTHER, SELFPAY ==
--- NOTE | 2024-06-03 15:05 | OT.OPOE ---
OT Outpatient Ortho Eval OT Outpatient Ortho Eval* Start: 06/02/24 15:56 Freq: Status: Active Protocol: Document 06/02/24 15:57 CSS (Rec: 06/02/24 15:59 CSS [id number]) E-signed By Mary Sapp OTR/L OT OP Ortho Eval Details Complexity Complexity Low Insurance Information Insurance Information [facility],Medicare B Outpatient History/Precautions Current Condition/Medical Diagnosis Referring Provider Dr. Cutris Medical Diagnoses S69.90XAUnspecified injury of unspecified wrist, hand and finger(s), initial encounter Treatment Diagnosis M79.645- pain in fingers( thumb included) M79.646- pain in thumb M25.342 - hand instability Date of Onset April Medical Conditions HTN,CA,Metal Implants,Epilepsy ,Arthritis,Stroke Medical/Functional History Medical History Reviewed Yes Prior Level of Function/Mobility indep at baseline with ADLs/ IADLs Social History Employment Status Retired Hobbies plays piano Oriented Mental Status No Concerns Ortho Subjective Subjective Subjective Pt reports fall [facility] [employer] and injured L hand. Pt reports weakness in L thumb. Notes pain in L thumb with over use . Pt reports difficulty opening objects , buttoning, tying shoes, driving, and cooking/meal prep. Pt has refrained from playing piano as she feels like she could do it. Pain Assessment Pain Pain Yes Pain Comments L thumb: Rest: 2/10 Grippin/10 Range of Motion and Strength Hand/Finger/Thumb Range of Motion and Strength Hand/Finger/Thumb Range of Motion and Hand/Finger/Thumb Range of Strength Motion and WNL for B thumbs Hand Pinch/Casting Room Helper Strength Hand Pinch/Casting Room Helper Strength Hand Pinch/Casting Room Helper Strength Left Hand,Right Hand Left Hand Casting Room Helper Strength Position 1 in Elbow 18 Flexion (lbs) Lateral Pinch Strength (lbs) 4 Three Point Pinch (lbs) 3 Right Hand Casting Room Helper Strength Position 1 in Elbow 37 Flexion (lbs) Lateral Pinch Strength (lbs) 7 Three Point Pinch (lbs) 8 OT Objective Data Hand Hand Dominance Right Skin/Wounds/Edema Comments no bruising; normal skin color Sensation Sensation Assessment Summary Comments denies N/T Dexterity Dexterity Dexterity Left Hand,Right Hand Left Hand Scoring Times 9-Hole Peg Hand Test Scoring Time ( 28 seconds) Right Hand Scoring Times 9-Hole Peg Hand Test Scoring Time ( 27 seconds) OT Problems Problems Problems Decreased Strength,Pain, Lifting,Gripping,Pinching Other Problems Opening Containers,Dressing, Fasteners Patient Potential Good Assessment Assessment Assessment Pt is a 88 year old female who sustained a thumb injury after a fall in April 2024. Pt luckily did not have an fractures but still noting pain and weakness which is impacting pt's indep with ADLs /IADLs. Pt would benefit from skilled OT to try to reduce symptoms as well as ADL retraining to promote indep with ADLs/IADLs and return back to functional baseline. Occupational Therapy Treatment Plan - OP Potential Rehabilitation Potential Good Set Goals Goals Set with Patient Yes Goals Goals Goals to be met by August 25, 2024: 1) Pt will increase L cadastral surveyor strength to 25 # in order to promote function in L hand. 2) Pt will note 0/10 pain in cadastral surveyor/pinch activities in L hand in 2 consistent sessions or more. 3) Pt will verbalize compliance of HEP in order to progress towards goals. 4) Pt will verbalize ability to open jars without use of AE . 5) Pt will be able to verbalize 3 adaptive pieces of equipment that can help pt compensate for lack of strength and pain w/ L hand in order to promote function. Treatment Plan Treatment Plan Evaluation,Edema Control,Joint Mobilization,Manual Therapy, Splinting,Ultrasound, Therapeutic Exercise, Therapeutic Activities,Self Care/Home Management,Education Expected Frequency 1x Week Expected Duration 12 weeks Comment Summary Summary Upper Extremity Functional Index score: 38 /80 Home Program Home Program Home Program Initiated Home Program Specifics contrast bath; thumb ROM: - Thumb Abduction AROM on Table - 3 x daily - 7 x weekly - 1 sets - 10 reps - Seated Thumb Palmar Abduction Adduction AROM - 3 x daily - 7 x weekly - 1 sets - 10 reps - Seated Thumb Extension - 3 x daily - 7 x weekly - 1 sets - 10 reps - Seated Thumb Composite Flexion AROM - 3 x daily - 7 x weekly - 1 sets - 10 reps - Thumb AROM Opposition To All Fingers - 3 x daily - 7 x weekly Certification Certification Statement I Certify That: Therapy Services Provided, Therapy Plan Established, Therapy Plan Reviewed Certification Information Clinic ID # [id number] Initial Certification Date 06/02/24 Recertification Due Date 08/25/24 Provider Signature Required Yes Provider Signature Shows Agreement With POC & Medical Necessity Physician NPI Number Write NPI# Here Physician Comment/Change Comment or Changes Physician Signature & Date Requested Please Sign/Date Here
--- NOTE | 2024-06-17 16:04 | PT.OPEX ---
Please review and sign the attached physical therapy evaluation. Thank you. PT [facility] Outpatient Eval PT [facility] Outpatient Eval Start: 06/16/24 14:09 Freq: Status: Active Protocol: Document 06/17/24 10:02 TLQ (Rec: 06/17/24 13:57 TLQ [id number]) E-signed By Dede Bower DPT Physical Therapy Outpatient Evaluation Insurance Information Recert Due Date 09/15/24 Insurance Name Medicare B Medical Diagnosis Balance problem R26.89 Treating Diagnosis Impaired balance R26.81 Right knee pain M25.561 Muscle weakness M62.81 Imaging Report Information Knee x-ray completed at [facility] on 05/09/24 with the following impression indicated per radiology report: Bones: Right knee arthroplasty without hardware complication. Alignment is normal. No displaced fractures or bone lesions. Joint spaces: Unremarkable. Soft tissues: Unremarkable. Referring MD Chun Curtis MD Subjective Preferred Name Anabel Little had a fall on 05/09/24 while walking down the center aisle at [facility], she states the floor was sloped a little bit. She is unable to recall what happened but thinks her foot got caught on something as she was walking. When she fell she fell forward and landed on her right knee which still hurts. Had x-rays later that day at the ED. Initially had some bruising and swelling but this has improved . She enjoys participating in a dance class but is unable to participate right now due to the pain in her knee. Hurts to kneel and get up and down. She does feel like her balance is off when she is walking, denies feeling dizzy or lightheaded. Her goals for physical therapy is to reduce her knee pain so she can return to her dance classes and to improve her balance. She also hurt her left hand when she fell, is working with OT to address this. PMHx: HTN, hypothyroidism, osteoarthritis, AMD, hx of seizure, hx of TIA, hx of BL TKA Pain Comments 0-09/04 Date of Last Physician Visit 05/12/24 Current Work Status Retired Precautions Therapy Limitations/Systems Review Not Limited Objective Other/Pertinent Objective RANGE OF MOTION - KNEE R: 0-5-112 degrees, cramp with flexion L: 0-122 degrees STRENGTH hip flexion: 5/5 BL hip extension: 4+/5 BL hip abduction: 5/5 BL hip adduction: 4+/5 BL knee flexion: 4/5 BL knee extension: 4+/5 BL PALPATION tender on R: pes anserine, MCL SPECIAL TESTS - KNEE varus stress test: negative valgus stress test: negative Functional Test Performed & Score BALANCE 30 second STS: 7 reps with arms crossed, staggered stance with RLE posterior (<8 reps for females ages 85-89 indicates increased risk of falls) Tandem stance: R 7 seconds mod postural sway, L 30 seconds min postural sway Single leg stance: <1 second BL TU seconds, slow transitions GAIT without A.D., slow geronimo, increased lateral trunk sway gait speed: 0.86 m/s (<1.0 m/s indicates increased risk of falls) BALANCE/CTSIB Romberg eyes open firm surface : 30 seconds Romberg eyes closed firm surface: 30 seconds, min postural sway Romberg eyes open foam surface : 30 second, min postural sway Romberg eyes closed form surface: 30 seconds, mod-max postural sway 4-ITEM DGI: 8/12 (<10/12 indicates increased risk of falls) Horizontal head turns (1) slow gait speed, lateral path deviation Vertical head turns (1) slow gait speed, lateral path deviation Gait on level surfaces (3) Changes in gait speed (3) Assessment Assessment/Impression Anabel is a 89-year-old female who presents to physical therapy to address right knee pain and impaired balance after experiencing a fall on . Patient had x-rays completed to rule out concerns of fracture. She is currently being treated in OT to address left wrist pain associated with her fall. At this time her right knee pain limits her ability to kneel and complete transitional movements, she is unable to participate in her weekly dance class. Objective examination of the R knee revealed: AROM below functional range, muscle weakness, and pes anserine tenderness. Balance impairments observed with: 30 second sit to stand, static balance, and CTSIB. She is at an increased risk of falls based on performance during 30 second sit to stand, 4-item DGI, and gait speed. All examination findings were reviewed with the patient today. Discussed benefits and goals of physical therapy; patient verbalized agreement with POCCruzito Little will benefit from skilled physical therapy interventions of manual therapy and therapeutic exercise to reduce R knee pain for improved tolerance to ADL 's and desired physical activities. She will also benefit from therapeutic activity and neuromuscular re- education to decrease risk of future falls. Primary Functional Limitations right knee pain, muscle weakness, kneeling, transitions, impaired balance, dynamic gait Plan of Care Rehabilitation Potential Good Physical Therapy Goals In 4 visits: - Anabel will report a decrease in R knee pain from 5/10 to <3 /10 for improved tolerance to transitional movements. - Anabel will deny experiencing any trips/falls over 4 consecutive weeks. - Anabel will demonstrate good adherence to her HEP in order to progress skilled interventions. In 8-10 visits: - Anabel will demonstrate R knee AROM that is WFL to complete ADL's without restriction. - Anabel will complete 8 repetitions during 30 second sit to stand to demonstrate improvements in functional LE strength. - Anabel will demonstrate tandem stance on the R within 5 seconds on her L for improved static balance. - Anabel will score 10/12 on 4- item DGI to demonstrate decreased risk of falls during dynamic gait and balance. - Anabel will have good adherence to her HEP in order to manage R knee symptoms outside of formal PT. Treatment Plan/Direct Interventions Gait Training,Manual Therapy, Neuromuscular Re-ed,Self-Care/ Home Management,Therapeutic Activities,Therapeutic Exercises Frequency/Duration 1x/week for 8-10 visits Patient Will Be Discharged From Therapy Completion of LTG(s),Skills Plateau,Independent w/HEP, Independently Progressing Evaluation Billing Untimed Code Treatment Minutes 35 Complexity Low Certification Information Initial Certification Date 06/17/24 Ending Certification Date 09/15/24 Provider Signature Required Yes Provider Signature Shows Agreement With POC & Medical Necessity Physician NPI Number Write NPI# Here Physician Comment/Change : Physician Signature & Date Requested Please Sign/Date Here
--- NOTE | 2024-09-15 08:08 | REH.OT ---
Discharge. Pt's first visit was on 06/02/24 and pt's last visit was on 07/14/24. Pt was trying anti-inflammatory drug and waiting to get into MRI before scheduling more visits. Pt had never called back to schedule more visits. Pt had not met goals. Pt will need new order if she wants to work again with OT.
== END 2024-09-15 08:25 | disposition home or self-care (01) ==
PROVIDERS: PCP Internal Medicine; Visit Provider Internal Medicine
DX: S69.90XA Unspecified injury of unspecified wrist, hand and finger(s), initial encounter (principal); Z51.89 Encounter for other specified aftercare
CPT/HCPCS: 97035; 97110; 97112; 97116; 97161; 97165; 97530; 97535; X5282

== ENCOUNTER 2025-01-14 09:36 | Outpatient (CLI) | payer MEDICARE, OTHER, SELFPAY | END 2025-01-14 09:37 | disposition home or self-care (01) | PROVIDERS: PCP Internal Medicine; Referring Provider Internal Medicine; Visit Provider Internal Medicine | DX: I10 Essential (primary) hypertension (principal); E03.9 Hypothyroidism, unspecified; N39.46 Mixed incontinence | CPT/HCPCS: 80053; 80061; 84443 ==

== ENCOUNTER 2025-01-19 00:30 | Outpatient (CLI) | payer MEDICARE, OTHER, SELFPAY | END 2025-01-19 00:31 | disposition home or self-care (01) | LOC: NFLDREF 01-21 14:23 | PROVIDERS: PCP Internal Medicine; Referring Provider Internal Medicine; Visit Provider Internal Medicine | DX: N39.46 Mixed incontinence (principal) | CPT/HCPCS: 87086 ==